=== PATIENT | female | born 1940 | race African-American/Black ===

== ENCOUNTER 2017-01-17 19:27 | Inpatient (IN) | payer OTHER ==
[~2017-01-17] VITALS: Ht 170.2 cm; Wt 114.9 kg
[~2017-01-17 19:27] MED LIST: ASPIR 8181 MG ORAL; ASTORVASTATIN; COREG25 MG ORAL; DIOVAN80 MG ORAL; FUROSEMIDE40 MG ORAL; NOVOLOG MI100 UNITS/ SUBQ; PROTONIX40 MG ORAL; VITAMIN B-12100 MCG ORAL; [UNRECOGNIZED DRUG - OTHER]
[2017-01-17] MEDS ORDERED: GLIMEPIRIDE4 MG ORAL (19:43)
[2017-01-17] MEDS ORDERED: VITAMIN D1000 UNI1 ORAL (19:43)
[2017-01-17] MEDS ORDERED: CLOPIDOGREL75 MG ORAL (19:43)
[2017-01-17] MEDS ORDERED: ATORVASTATIN CA40 MG ORAL (19:43)
[2017-01-17] MEDS ORDERED: HUMALOG100 UNIT/4 SUBQ (19:43)
[2017-01-17 20:03] LABS: EOSINOPHILS % (AUTO) 2.3 % (0.0-3.0); MEAN CORPUSCULAR HEMOGLOBIN 28.8 PG (27.0-31.0); MEAN CORPUSCULAR HGB CONC 33.5 G/DL (32.0-36.0); MEAN CORPUSCULAR VOLUME 86 FL (80-99); MEAN PLATELET VOLUME 5.7 FL (6.5-10.1); MONOCYTES % (AUTO) 11.7 % (1.0-10.0); PLATELET COUNT 219 K/UL (150-450); RED BLOOD COUNT 3.89 M/UL (4.20-5.40); RED CELL DISTRIBUTION WIDTH 13.6 % (11.6-14.8); WHITE BLOOD COUNT 12.7 K/UL (4.8-10.8)
--- NOTE | 2017-01-17 20:25 | Emergency Room Report ---
History of Present Illness General Chief Complaint: Dyspnea/Respdistress Present Illness HPI 76-year-old female history of hypertension diabetes, hyperlipidemia, status post carotid endarterectomy yesterday at [facility], presenting with one day of shortness of breath. Patient states that she has been short of breath all day both at rest and on exertion. Denies any chest pain. Denies any fever chills cough or syncopal episodes. Patient states that she has never experienced this type of shortness of breath in the past. Patient denies any history of DVT or PE, no hormone replacement therapy, no history of malignancy. Allergies: Coded Allergies: No Known Allergies (Unverified , 10/04/13) Patient History Past Surgical History: none Pertinent Family History: none Now: No Reviewed Nursing Documentation: PMH: Agreed, PSxH: Agreed Nursing Documentation-PMH Hx Cardiac Problems: Yes - 2 STEMI, Pacemaker, Defibilator, cardiac stents Hx Hypertension: Yes Hx Pacemaker: Yes Hx Diabetes: Yes Hx Cancer: No Hx Gastrointestinal Problems: No Hx Neurological Problems: No Review of Systems All Other Systems: negative except mentioned in HPI Physical Exam Vital Signs Date Time Temp Pulse Resp B/P (MAP) Pulse Ox O2 Delivery O2 Flow Rate FiO2 01/17/17 19:21 98.4 91 20 147/85 99 Nasal Cannula 6.0 Sp02 EP Interpretation: reviewed, abnormal - hypoxic on RA 88, goes up to General Appearance: normal inspection, well appearing, no apparent distress, alert, GCS 15, non-toxic Head: normocephalic, atraumatic Eyes: bilateral eye normal inspection, bilateral eye PERRL, bilateral eye EOMI ENT: normal ENT inspection, normal pharynx, normal voice, moist mucus membranes Neck: normal inspection, full range of motion, supple, no bony tend Respiratory: normal inspection, lungs clear, normal breath sounds, no respiratory distress, no retraction, no wheezing, speaking full sentences, chest symmetrical Cardiovascular #1: normal inspection, regular rate, rhythm, no edema, normal capillary refill Gastrointestinal: normal inspection, non tender, soft, non-distended, no guarding Musculoskeletal: normal inspection, back normal, normal range of motion, non- tender Neurologic: normal inspection, alert, oriented x3, responsive, segmental paver installer III-XII nml as tested, motor strength/tone normal, sensory intact, normal gait, speech normal Psychiatric: normal inspection, judgement/insight normal, memory normal Skin: normal inspection, normal color, no rash, warm/dry, well hydrated, normal turgor Procedures Critical Care Time Critical Care Time 45 minutes of CC time 76 YO F with sob today VS: hypoxic, tachypneic Airway patent. PLAN: IV access, labs, lactate, d-dimer, CTA Tele vs CHIDI CC time also includes review of labs, review of EMR and paperwork from SNF, d/w hospitalist CC could include dosing of pressors, additional Abx CC time does not include procedures Central Line Central Line : Consent: Written Central Line Lumen: triple Maximal Sterile Barrier Tech: yes cap, yes mask, yes sterile gown, yes sterile gloves, yes large sterile sheet, yes hand hygiene, yes chlorhexidine prep Central Line Postion: internal jugular (R) Anesthesia: Lidocaine Complications: none Central Line Post Position: sutured, good blood return, position confirmed w / CXR Attempts: One Patient Tolerated: Well Complications: None Medical Decision Making Diagnostic Impression: Primary Impression: Dyspnea Additional Impression: Hypoxia ER Course 76 yo F with dyspnea x 1 day DDX: pneumonia, acs, PE Plan: Obtain labs, coags, EKG, CXR ER course: Patient has been monitored during ED stay continues to be hypoxic requiring NC O2 d-dimer elevated, trop elevated CTA ordered heparin bolus/drip given to treat presumed PE no access, R IJ placed Disposition: Patient is to be admitted to tele D/W hospitalist Dr Garcia and Dr. Goodman Patient is still pending CTA however already receiving heparin Please note that this Emergency Department Report was dictated using [employer] team leader technology software, occasionally this can lead to erroneous entry secondary to interpretation by the dictation equipment. Laboratory Tests Test 01/17/17 19:51 White Blood Count 12.7 K/UL (4.8-10.8) H Red Blood Count 3.89 M/UL (4.20-5.40) L Hemoglobin 11.2 G/DL (12.0-16.0) L Hematocrit 33.4 % (37.0-47.0) L Mean Corpuscular Volume 86 FL (80-99) Mean Corpuscular Hemoglobin 28.8 PG (27.0-31.0) Mean Corpuscular Hemoglobin Concent 33.5 G/DL (32.0-36.0) Red Cell Distribution Width 13.6 % (11.6-14.8) Platelet Count 219 K/UL (150-450) Mean Platelet Volume 5.7 FL (6.5-10.1) L Neutrophils (%) (Auto) 70.0 % (45.0-75.0) Lymphocytes (%) (Auto) 15.0 % (20.0-45.0) L Monocytes (%) (Auto) 11.7 % (1.0-10.0) H Eosinophils (%) (Auto) 2.3 % (0.0-3.0) Basophils (%) (Auto) 1.0 % (0.0-2.0) Prothrombin Time 11.0 SEC (9.30-11.50) Prothrombin Time INR 1.1 (0.9-1.1) PTT 26 SEC (23-33) D-Dimer 2384 ng/mL (<500) H Sodium Level 143 mEQ/L (135-145) Potassium Level 4.6 mEQ/L (3.4-4.9) Chloride Level 105 mEQ/L (98-107) Carbon Dioxide Level 28 mEQ/L (20-30) Anion Gap 10 (5-15) Blood Urea Nitrogen 19 mg/dL (7-23) Creatinine 1.4 mg/dL (0.5-0.9) H Estimate Glomerular Filtration Rate mL/min (>60) Glucose Level 103 mg/dL (74-106) Calcium Level 8.9 mg/dL (8.6-10.2) Total Bilirubin 0.4 mg/dL (0.0-1.2) Aspartate Amino Transferase (AST) 28 U/L (5-40) Alanine Aminotransferase (ALT) 9 U/L (3-33) Alkaline Phosphatase 98 U/L (35-104) Total Creatine Kinase 348 U/L (26-140) H Creatine Kinase MB 16.3 ng/mL (< 3.8) H Creatine Kinase MB Relative Index 4.6 Troponin I 1.98 ng/mL (<=0.30) *H Pro-B-Type Natriuretic Peptide 3531 pg/mL (0-450) H Total Protein 6.8 g/dL (6.6-8.7) Albumin 3.7 g/dL (3.5-5.2) Globulin 3.1 g/dL Albumin/Globulin Ratio 1.1 (1.0-2.7) EKG Diagnostic Results Rate: normal Rhythm: NSR ST Segments: other - atrial paced, TWI I and aVL Rhythm Strip Diag. Results EP Interpretation: yes Rate: 89 Rhythm: NSR, no PVC's, no ectopy Chest X-Ray Diagnostic Results Chest X-Ray Diagnostic Results #1: Chest X-Ray Ordered: Yes # of Views/Limited/Complete: 1 View Indication: Shortness of Breath Interpretation: other - poss b/l infiltrates Impression: Other - poss b/l infiltrates Interpreting ER Provider: Electronically signed by Yokasta Panchal MD Chest X-Ray Diagnostic Results #2: Chest X-Ray Ordered: Yes # of Views/Limited/Complete: 1 View Indication: Other - cvp EP Interpretation: Yes Interpretation: no consolidation, no effusion, no pneumothorax, other - ppm in place, central line in place Impression: Other - central line in place Interpreting ER Provider: Electronically signed by Yokasta Panchal MD Last Vital Signs Date Time Temp Pulse Resp B/P (MAP) Pulse Ox O2 Delivery O2 Flow Rate FiO2 01/17/17 19:34 91 20 Nasal Cannula 4.0 01/17/17 19:21 98.4 147/85 99 Disposition: ADMITTED INPATIENT Condition: Critical Yokasta Panchal M.D. Jan 17, 2017 20:25
[2017-01-17 20:31] LABS: INR 1.1 (0.9-1.1)
[2017-01-17 20:35] LABS: ALANINE AMINOTRANSFERASE 9 U/L (3-33); ALBUMIN/GLOBULIN RATIO 1.1 (1.0-2.7); ANION GAP 10 (5-15); ASPARTATE AMINO TRANSFERASE 28 U/L (5-40); CALCIUM 8.9 mg/dL (8.6-10.2); CARBON DIOXIDE 28 mEQ/L (20-30); CHLORIDE 105 mEQ/L (98-107); CREATININE 1.4 mg/dL (0.5-0.9); HEMOLYSIS 19; POTASSIUM 4.6 mEQ/L (3.4-4.9); SODIUM 143 mEQ/L (135-145); TOTAL PROTEIN 6.8 g/dL (6.6-8.7)
[2017-01-17 20:39] LABS: TROPONIN I 1.98 ng/mL (<=0.30)
[2017-01-17 20:45] LABS: CKMB 16.3 ng/mL (< 3.8)
[2017-01-17] MEDS ORDERED: Heparin 25,000u/D5W 500ml (VTE/AF) IV SCH (20:45)
[2017-01-17] MEDS ORDERED: Heparin 25,000u/D5W 500ml 500 ML IV SCH ×2 (20:45→23:02)
[2017-01-17] MEDS ORDERED: Heparin 5000 units/ml inj IV ONE ×3 (20:45→21:00)
[2017-01-17] MEDS ORDERED: LANTUS SOL100 UNIT/1 SUBQ (20:51)
[2017-01-17 21:30] VITALS: BP 158/66
[2017-01-17] MEDS ORDERED: Lidocaine 1% MPF 10mg/ml 5ml ONE (21:51)
[2017-01-17] MEDS ORDERED: Miralax 17gm pkt ORAL PRN (22:45)
[2017-01-17] MEDS ORDERED: Morphine Sulfate 2mg/ml Inj IVP PRN (22:45)
[2017-01-17] MEDS ORDERED: Mylanta II UD 30ml ORAL PRN (22:45)
[2017-01-17] MEDS ORDERED: Zolpidem 5mg tab ORAL PRN (22:45)
[2017-01-17] MEDS ORDERED: LORazepam Inj 2mg/ml 1ml IV PRN (22:45)
[2017-01-17 23:20] VITALS: BP 129/54
[2017-01-18 01:00] VITALS: BP 145/62
[2017-01-18] MEDS ORDERED: Heparin 25,000u/D5W 500ml 500 ML IV SCH ×3 (01:45→16:00)
[2017-01-18 05:23] LABS: BASOPHILS % (AUTO) 0.9 % (0.0-2.0); EOSINOPHILS % (AUTO) 2.6 % (0.0-3.0); LYMPHOCYTES % (AUTO) 16.1 % (20.0-45.0); MEAN CORPUSCULAR HEMOGLOBIN 28.6 PG (27.0-31.0); MEAN CORPUSCULAR HGB CONC 32.5 G/DL (32.0-36.0); MEAN CORPUSCULAR VOLUME 88 FL (80-99); MEAN PLATELET VOLUME 6.4 FL (6.5-10.1); NEUTROPHILS % (AUTO) 69.4 % (45.0-75.0); PLATELET COUNT 250 K/UL (150-450); RED BLOOD COUNT 3.97 M/UL (4.20-5.40); RED CELL DISTRIBUTION WIDTH 13.9 % (11.6-14.8); WHITE BLOOD COUNT 11.1 K/UL (4.8-10.8)
[2017-01-18] MEDS: Carvedilol 25mg Tab ORAL SCH ×3 (05:33→18:12)
[2017-01-18 05:48] LABS: ANION GAP 11 (5-15); CALCIUM 8.8 mg/dL (8.6-10.2); CARBON DIOXIDE 27 mEQ/L (20-30); CHLORIDE 103 mEQ/L (98-107); CHOLESTEROL 142 mg/dL (< 200); CHOLESTEROL/HDL RATIO 2.3 (3.3-4.4); CREATININE 1.2 mg/dL (0.5-0.9); HEMOLYSIS 4; LDL CHOLESTEROL (CALC.) 71 mg/dL (60-99); POTASSIUM 4.2 mEQ/L (3.4-4.9); SODIUM 141 mEQ/L (135-145)
[2017-01-18 06:06] LABS: TROPONIN I 2.83 ng/mL (<=0.30)
[2017-01-18] MEDS ORDERED: NovoLOG Insulin Flexpen SUBQ SCH (06:30)
[2017-01-18 07:48] VITALS: BP 104/59
--- NOTE | 2017-01-18 08:18 | Consultation ---
History of Present Illness General Date patient seen: Jan 18, 2017 Time patient seen: 07:30 Chief Complaint: Dyspnea/Respdistress Referring physician: dr Garcia Reason for Consultation: internal management Present Illness HPI 76-year-old female with PMH of history of hypertension, diabetes, hyperlipidemia, status post carotid endarterectomy 1 day before at [facility], presented with one day of shortness of breath, both at rest and on exertion. Denied any chest pain. No fever, chills, cough, wheezing No blackout, no LO Denied any history of DVT or PE in the past, no hormone replacement therapy, no history of malignancy. Workup in ED revealed elevated troponin- 1.98 elevated D dimer -2384 CTA done, results pending started on heparin gtt for presumed PE prior to results of CTA available and troponin results pro BNP-3531 mild leukocytosis WBC-12.7 anemic -11.2/33.4 ECG -A paced with TWI in leads I and aVL CXR with some congestive changes Allergies: Coded Allergies: No Known Allergies (Unverified , 10/04/13) Medication History Scheduled Aspirin* (Aspir 81*), 81 MG ORAL DAILY, (Reported) Atorvastatin Calcium* (Atorvastatin Calcium*), 40 MG ORAL BEDTIME, (Reported) Carvedilol (Coreg), 25 MG ORAL DAILY, (Reported) Cholecalciferol (Vitamin D3)* (Vitamin D*), 2,000 UNITS ORAL DAILY, (Reported) Clopidogrel* (Clopidogrel*), 75 MG ORAL DAILY, (Reported) Cyanocobalamin (Vitamin B-12), Unknown Dose ORAL DAILY, (Reported) Furosemide* (Lasix*), 40 MG ORAL DAILY, (Reported) Glimepiride* (Glimepiride*), 4 MG ORAL BEFORE BREAKFAST, (Reported) Insulin Aspart (Novolog Mix 70-30 Flexpen Syrn), 10 UNITS SUBQ ACBREAKFAST, ( Reported) Insulin Aspart (Novolog Mix 70-30 Flexpen Syrn), 12 UNITS SUBQ BEFORE LUNCH, ( Reported) Insulin Aspart (Novolog Mix 70-30 Flexpen Syrn), 8 UNITS SUBQ 2000, (Reported) Insulin Glargine (Lantus), 16 SUBQ BEDTIME, (Reported) Pantoprazole* (Protonix*), 40 MG ORAL DAILY, (Reported) Valsartan (Diovan), 80 MG ORAL HS, (Reported) [astorvastatin], 40 DAILY, (Reported) [d3-2000], DAILY, (Reported) Miscellaneous Medications Insulin Lispro (Humalog), 0 SUBQ, (Reported) Patient History Healthcare decision maker Resuscitation status Full Code Advanced Directive on File No Past Medical/Surgical History Past Medical/Surgical History: (1) Diabetes (2) Hyperlipidemia (3) CAD (coronary artery disease) (4) HTN (hypertension) Review of Systems Constitutional: Reports: weakness Eye: Reports: no symptoms ENT: Reports: no symptoms Respiratory: Reports: see HPI Cardiovascular: Reports: see HPI Gastrointestinal: Reports: no symptoms Genitourinary: Reports: no symptoms Musculoskeletal: Reports: muscle stiffness Skin: Reports: no symptoms Psychiatric: Reports: no symptoms Neurological: Reports: no symptoms Endocrine: Reports: other - DIABETES Hematologic/Lymphatic: Reports: no symptoms Physical Exam General Appearance: no apparent distress, alert - AWAKE, RESPONSIVE aa FEMALE IN nad , morbidly obese Lines, tubes and drains: peripheral HEENT: normocephalic, atraumatic, anicteric, mucous membranes moist, PERRL Neck: supple, other - RIJ CL intact, left lateral neck with dressing C/D/I ( after endarterectomy) Respiratory/Chest: lungs clear, no respiratory distress, no accessory muscle use Cardiovascular/Chest: normal peripheral pulses, normal rate - V pacing with underlying SR Abdomen: normal bowel sounds, non tender, soft - obese Extremities: normal range of motion, non-tender, no calf tenderness Neurologic: no motor/sensory deficits, alert, oriented x 3, responsive Musculoskeletal: normal muscle bulk Last 24 Hour Vital Signs Date Time Temp Pulse Resp B/P (MAP) Pulse Ox O2 Delivery O2 Flow Rate FiO2 01/18/17 07:48 96.6 77 18 104/59 99 Nasal Cannula 4.0 01/18/17 05:33 88 171/82 01/18/17 04:00 84 01/18/17 01:20 97.0 88 17 145/62 99 Non-Rebreather 10.0 01/18/17 01:00 88 17 145/62 99 Non-Rebreather 10.0 01/17/17 23:20 78 18 129/54 100 Non-Rebreather 10.0 01/17/17 21:30 97.0 89 21 158/66 100 Non-Rebreather 10.0 01/17/17 19:34 91 20 Nasal Cannula 4.0 01/17/17 19:21 98.4 91 20 147/85 99 Nasal Cannula 6.0 Laboratory Tests Test 01/17/17 19:51 01/18/17 05:10 White Blood Count 12.7 K/UL (4.8-10.8) H 11.1 K/UL (4.8-10.8) H Red Blood Count 3.89 M/UL (4.20-5.40) L 3.97 M/UL (4.20-5.40) L Hemoglobin 11.2 G/DL (12.0-16.0) L 11.3 G/DL (12.0-16.0) L Hematocrit 33.4 % (37.0-47.0) L 34.8 % (37.0-47.0) L Mean Corpuscular Volume 86 FL (80-99) 88 FL (80-99) Mean Corpuscular Hemoglobin 28.8 PG (27.0-31.0) 28.6 PG (27.0-31.0) Mean Corpuscular Hemoglobin Concent 33.5 G/DL (32.0-36.0) 32.5 G/DL (32.0-36.0) Red Cell Distribution Width 13.6 % (11.6-14.8) 13.9 % (11.6-14.8) Platelet Count 219 K/UL (150-450) 250 K/UL (150-450) Mean Platelet Volume 5.7 FL (6.5-10.1) L 6.4 FL (6.5-10.1) L Neutrophils (%) (Auto) 70.0 % (45.0-75.0) 69.4 % (45.0-75.0) Lymphocytes (%) (Auto) 15.0 % (20.0-45.0) L 16.1 % (20.0-45.0) L Monocytes (%) (Auto) 11.7 % (1.0-10.0) H 11.0 % (1.0-10.0) H Eosinophils (%) (Auto) 2.3 % (0.0-3.0) 2.6 % (0.0-3.0) Basophils (%) (Auto) 1.0 % (0.0-2.0) 0.9 % (0.0-2.0) Prothrombin Time 11.0 SEC (9.30-11.50) Prothromb Time International Ratio 1.1 (0.9-1.1) Activated Partial Thromboplast Time 26 SEC (23-33) > 150 SEC (23-33) *H D-Dimer 2384 ng/mL (<500) H Sodium Level 143 mEQ/L (135-145) 141 mEQ/L (135-145) Potassium Level 4.6 mEQ/L (3.4-4.9) 4.2 mEQ/L (3.4-4.9) Chloride Level 105 mEQ/L (98-107) 103 mEQ/L (98-107) Carbon Dioxide Level 28 mEQ/L (20-30) 27 mEQ/L (20-30) Anion Gap 10 (5-15) 11 (5-15) Blood Urea Nitrogen 19 mg/dL (7-23) 16 mg/dL (7-23) Creatinine 1.4 mg/dL (0.5-0.9) H 1.2 mg/dL (0.5-0.9) H Estimat Glomerular Filtration Rate mL/min (>60) mL/min (>60) Glucose Level 103 mg/dL (74-106) 133 mg/dL (74-106) H Calcium Level 8.9 mg/dL (8.6-10.2) 8.8 mg/dL (8.6-10.2) Total Bilirubin 0.4 mg/dL (0.0-1.2) Aspartate Amino Transf (AST/SGOT) 28 U/L (5-40) Alanine Aminotransferase (ALT/SGPT) 9 U/L (3-33) Alkaline Phosphatase 98 U/L (35-104) Total Creatine Kinase 348 U/L (26-140) H Creatine Kinase MB 16.3 ng/mL (< 3.8) H Creatine Kinase MB Relative Index 4.6 Troponin I 1.98 ng/mL (<=0.30) *H 2.83 ng/mL (<=0.30) *H Pro-B-Type Natriuretic Peptide 3531 pg/mL (0-450) H Total Protein 6.8 g/dL (6.6-8.7) Albumin 3.7 g/dL (3.5-5.2) Globulin 3.1 g/dL Albumin/Globulin Ratio 1.1 (1.0-2.7) Triglycerides Level 49 mg/dL (< 150) Cholesterol Level 142 mg/dL (< 200) LDL Cholesterol 71 mg/dL (60-99) HDL Cholesterol 61 mg/dL (> 60) H Cholesterol/HDL Ratio 2.3 (3.3-4.4) L Height (Feet): 5 Height (Inches): 7.00 Weight (Pounds): 250 Medications Current Medications Medications (Trade) Dose Ordered Sig/Erin Route PRN Reason Start Time Stop Time Status Last Admin Dose Admin Acetaminophen (Tylenol) 650 mg Q4H PRN ORAL fever 01/17/17 22:45 02/16/17 22:44 Al Hydroxide/Mg Hydroxide (Mylanta II) 30 ml Q6H PRN ORAL dyspepsia 01/17/17 22:45 02/16/17 22:44 Carvedilol (Coreg) 25 mg BID ORAL 01/18/17 09:00 02/17/17 08:59 01/18/17 05:33 Dextrose (Dextrose 50%) STAT PRN IV Hypoglycemia 01/17/17 22:45 02/16/17 22:44 Heparin Sodium/ Dextrose 500 ml @ 31.751 mls/ hr adjust per protocol IV 01/18/17 01:45 02/17/17 01:44 01/18/17 01:51 Insulin Aspart (NovoLOG) BEFORE MEALS AND HS SUBQ 01/18/17 06:30 02/17/17 06:29 Lorazepam (Ativan 2mg/ml 1ml) 0.5 mg Q4H PRN IV For Anxiety 01/17/17 22:45 01/24/17 22:44 Morphine Sulfate (Morphine Sulfate) 1 mg Q4H PRN IVP For Pain 01/17/17 22:45 01/24/17 22:44 Ondansetron HCl (Zofran) 4 mg Q6H PRN IVP Nausea & Vomiting 01/17/17 22:45 02/16/17 22:44 Pantoprazole (Protonix) 40 mg ACBREAKFAST ORAL 01/18/17 06:30 02/17/17 06:29 01/18/17 05:32 Polyethylene Glycol (Miralax) 17 gm HSPRN PRN ORAL Constipation 01/17/17 22:45 02/16/17 22:44 Zolpidem Tartrate (Ambien) 5 mg HSPRN PRN ORAL Insomnia 01/17/17 22:45 01/24/17 22:44 Assessment/Plan Assessment/Plan ASSESSMENT acute hypoxemic respiratory failure elevated troponin possible ACS/ NSTEMI possible PE s/p recent left carotid endarterectomy HTN CAD with cardiac stents Hx of STEMI x 2 pacemaker DM Hyperlipidemia LESLY vs chronic renal insufficiency PLAN OF CARE tele Heparin gtt serial troponin, trending up cardio eval pending ASA, Plavix resumed BB statin, lipid panel OK CTA results pending ( not completed, since amchine broken) check venous Duplex BLE supplemental O2 to keep sat above 92% Pulmonary toilet prn Fup with CXR today ECHO consider diuresis-per cardio discretion doubt PNA, leukocytosis likely reactive BS management with SS of insulin GI prophayxlis transfer to higher level of care case discussed and evaluated by supervising physician Les ([facility]),Yamileth DRAPER Jan 18, 2017 08:18
--- NOTE | 2017-01-18 08:40 | Diagnostic Imaging Report ---
Indication: Dyspnea Comparison: 01/17/17 A single view chest radiograph was obtained. Findings: Interstitium appear somewhat prominent. There is mild cardiomegaly. There is a pacemaker on the left. Right jugular line is present in good position. Bones are osteopenic. There is no pneumothorax. Impression: Right jugular line in good position. No complications
--- NOTE | 2017-01-18 08:49 | Diagnostic Imaging Report ---
Indication: Dyspnea Comparison: 10/05/13 A single view chest radiograph was obtained. Findings: The heart is enlarged. Interstitial edema suspected. This is mild in degree. The bones are osteopenic. Pacemaker noted. Impression: Mild interstitial edema
[2017-01-18] MEDS ORDERED: Aspirin Baby 81mg ORAL SCH (09:00)
[2017-01-18] MEDS ORDERED: Carvedilol 25mg Tab ORAL SCH (09:00)
--- NOTE | 2017-01-18 11:26 | Diagnostic Imaging Report ---
Indication: Dyspnea Comparison: 01/17/17 A single view chest radiograph was obtained. Findings: No change appreciated. Interstitial edema and cardiomegaly appear relatively stable. Pacemaker and right jugular line again noted. Impression: Suspected interstitial edema without significant change from the prior day
[2017-01-18 12:30] VITALS: BP 97/47
--- NOTE | 2017-01-18 14:18 | Cardiac Electrophysiology PN ---
Subjective Subjective [id number] Objective Last 24 Hour Vital Signs Date Time Temp Pulse Resp B/P (MAP) Pulse Ox O2 Delivery O2 Flow Rate FiO2 01/18/17 12:30 98.1 83 20 97/47 98 Nasal Cannula 3.0 01/18/17 12:00 80 01/18/17 10:42 77 104/59 01/18/17 08:00 85 01/18/17 07:48 96.6 77 18 104/59 99 Nasal Cannula 4.0 01/18/17 05:33 88 171/82 01/18/17 04:00 84 01/18/17 01:20 97.0 88 17 145/62 99 Non-Rebreather 10.0 01/18/17 01:00 88 17 145/62 99 Non-Rebreather 10.0 01/17/17 23:20 78 18 129/54 100 Non-Rebreather 10.0 01/17/17 21:30 97.0 89 21 158/66 100 Non-Rebreather 10.0 01/17/17 19:34 91 20 Nasal Cannula 4.0 01/17/17 19:21 98.4 91 20 147/85 99 Nasal Cannula 6.0 Intake and Output 01/18/17 01/19/17 19:00 07:00 Intake Total 247.00 ml Output Total 400 ml Balance -153.00 ml Intake Oral 120 ml IV Total 127.00 ml Output Urine Total 400 ml Laboratory Tests Test 01/17/17 19:51 01/18/17 05:10 White Blood Count 12.7 K/UL (4.8-10.8) H 11.1 K/UL (4.8-10.8) H Red Blood Count 3.89 M/UL (4.20-5.40) L 3.97 M/UL (4.20-5.40) L Hemoglobin 11.2 G/DL (12.0-16.0) L 11.3 G/DL (12.0-16.0) L Hematocrit 33.4 % (37.0-47.0) L 34.8 % (37.0-47.0) L Mean Corpuscular Volume 86 FL (80-99) 88 FL (80-99) Mean Corpuscular Hemoglobin 28.8 PG (27.0-31.0) 28.6 PG (27.0-31.0) Mean Corpuscular Hemoglobin Concent 33.5 G/DL (32.0-36.0) 32.5 G/DL (32.0-36.0) Red Cell Distribution Width 13.6 % (11.6-14.8) 13.9 % (11.6-14.8) Platelet Count 219 K/UL (150-450) 250 K/UL (150-450) Mean Platelet Volume 5.7 FL (6.5-10.1) L 6.4 FL (6.5-10.1) L Neutrophils (%) (Auto) 70.0 % (45.0-75.0) 69.4 % (45.0-75.0) Lymphocytes (%) (Auto) 15.0 % (20.0-45.0) L 16.1 % (20.0-45.0) L Monocytes (%) (Auto) 11.7 % (1.0-10.0) H 11.0 % (1.0-10.0) H Eosinophils (%) (Auto) 2.3 % (0.0-3.0) 2.6 % (0.0-3.0) Basophils (%) (Auto) 1.0 % (0.0-2.0) 0.9 % (0.0-2.0) Prothrombin Time 11.0 SEC (9.30-11.50) Prothromb Time International Ratio 1.1 (0.9-1.1) Activated Partial Thromboplast Time 26 SEC (23-33) > 150 SEC (23-33) *H D-Dimer 2384 ng/mL (<500) H Sodium Level 143 mEQ/L (135-145) 141 mEQ/L (135-145) Potassium Level 4.6 mEQ/L (3.4-4.9) 4.2 mEQ/L (3.4-4.9) Chloride Level 105 mEQ/L (98-107) 103 mEQ/L (98-107) Carbon Dioxide Level 28 mEQ/L (20-30) 27 mEQ/L (20-30) Anion Gap 10 (5-15) 11 (5-15) Blood Urea Nitrogen 19 mg/dL (7-23) 16 mg/dL (7-23) Creatinine 1.4 mg/dL (0.5-0.9) H 1.2 mg/dL (0.5-0.9) H Estimat Glomerular Filtration Rate mL/min (>60) mL/min (>60) Glucose Level 103 mg/dL (74-106) 133 mg/dL (74-106) H Calcium Level 8.9 mg/dL (8.6-10.2) 8.8 mg/dL (8.6-10.2) Total Bilirubin 0.4 mg/dL (0.0-1.2) Aspartate Amino Transf (AST/SGOT) 28 U/L (5-40) Alanine Aminotransferase (ALT/SGPT) 9 U/L (3-33) Alkaline Phosphatase 98 U/L (35-104) Total Creatine Kinase 348 U/L (26-140) H Creatine Kinase MB 16.3 ng/mL (< 3.8) H Creatine Kinase MB Relative Index 4.6 Troponin I 1.98 ng/mL (<=0.30) *H 2.83 ng/mL (<=0.30) *H Pro-B-Type Natriuretic Peptide 3531 pg/mL (0-450) H Total Protein 6.8 g/dL (6.6-8.7) Albumin 3.7 g/dL (3.5-5.2) Globulin 3.1 g/dL Albumin/Globulin Ratio 1.1 (1.0-2.7) Triglycerides Level 49 mg/dL (< 150) Cholesterol Level 142 mg/dL (< 200) LDL Cholesterol 71 mg/dL (60-99) HDL Cholesterol 61 mg/dL (> 60) H Cholesterol/HDL Ratio 2.3 (3.3-4.4) DEAN BRADSHAW Jan 18, 2017 14:18
[2017-01-18 16:00] VITALS: BP 142/65
[2017-01-18] MEDS ORDERED: Mylanta II UD 30ml ORAL PRN (16:00)
[2017-01-18] MEDS: NovoLOG Insulin Flexpen SUBQ SCH ×2 (16:10→21:20)
--- NOTE | 2017-01-18 16:42 | Consultation ---
Consult Note Consult Note NEUROLOGY CONSULTATION: Full note dictated #[id number] 76 y/o, RH, BF with PH of HTN, DM, DL, CAD s/p GA/PCI/Stents/AICD, PVD s/p LE stents, CVD asymptomatic - S/P L-CEA on 01/16/17. She was sent home on 01/17/17 and later that night she became very SOB and was brought into the [facility] ER. She feels better now. Denies any neurologic symptoms. ON EXAM: Globally diminished reflexes. No focal dysfunction. IMPRESSION: 1. SOB - Non-neurologic. 2. S/P recent L-CEA uneventful neurologically. REC: W/U for SOB as per Drs. Vieyra and Shara. Carotid duplex. LE duplex as planned. CTA of chest as planned. Continue anticoagulation in interim. Sanchez Puente M.D., M.S.P.Sheri. SANCHEZ PUENTE Jan 18, 2017 16:42
[2017-01-18] MEDS ORDERED: Zolpidem 5mg tab ORAL PRN (21:00)
[2017-01-18] MEDS ORDERED: Miralax 17gm pkt ORAL PRN (21:00)
[2017-01-19] VITALS (12 sets, daily range): BP systolic 111–171; BP diastolic 36–90
--- NOTE | 2017-01-19 02:00 | History and Physical Report ---
DATE OF ADMISSION: 01/17/2017 TIME SEEN: 9 a.m. CONSULTANTS: 1. Jey Puente M.D. 2. Carlos Olmedo M.D. 3. Yuliya Goodman M.D. CHIEF COMPLAINT: Chest pain and shortness of breath. BRIEF HISTORY: This is a 76-year-old female, who lives at home with grandson, presents to [facility] with history of shortness of breath. No chest pain. The patient diagnosed with presumed PE, shortness of breath, hypoxia, and elevated troponin. Admitted to telemetry for further care. Currently, calm. O2 NC. No chest pain. Slight short of breath. No nausea, vomiting, or diarrhea. PAST MEDICAL HISTORY: Include left CVA x2, NSTEMI, hypertension, and diabetes. PAST SURGICAL HISTORY: Heart stent and defibrillator. MEDICATIONS: Atorvastatin, Coreg, aspirin, Plavix, Protonix, Tylenol, morphine, MiraLAX, Zofran, and Ambien. ALLERGIES: Denies. SOCIAL HISTORY: No smoking. No alcohol. No intravenous drug abuse. FAMILY HISTORY: Noncontributory. PHYSICAL EXAMINATION: GENERAL: Calm, slight short of breath, weak in bed, oriented x3, in no acute distress. VITAL SIGNS: Temperature is 96 degrees, pulse 77, respirations 18, and blood pressure 101/59. CARDIOVASCULAR: No murmurs. LUNGS: Poor exchange. ABDOMEN: Positive bowel sounds. Nontender and nondistended. EXTREMITIES: No cyanosis, clubbing, or edema. NEUROLOGIC: The patient moves all extremities, slightly weak. LABORATORY DATA: Lab exam show white count 11, hemoglobin and hematocrit 11 and 34, and platelets 250,000. Creatinine 1.2. Glucose 133. Troponin 2.83. PTT is greater than 150. D-dimer is 2384. ASSESSMENT: 1. Presumed pulmonary embolism. 2. Non ST-segment elevation myocardial infarction. 3. Hypertension. 4. Diabetes. PLAN: 1. Continue premedications. 2. O2 and pulmonary treatment. 3. Troponin q.8 h. x3. 4. EKG in the morning. 5. Dr. Puente, Dr. Olmedo, and Rex to consult. 6. OT, PT, and dietary evaluation. 7. CBC and BMP in the morning. 8. We will discuss with Dr. Olmedo regarding transfer. Brice Garcia D.O. DR: CROW JOB#: [id number] CC:
[2017-01-19] MEDS: Heparin 25,000u/D5W 500ml 500 ML IV SCH ×2 (03:43→11:58)
[2017-01-19 05:41] LABS: ANION GAP 7 (5-15); CALCIUM 8.8 mg/dL (8.6-10.2); CARBON DIOXIDE 31 mEQ/L (20-30); CHLORIDE 105 mEQ/L (98-107); CREATININE 1.2 mg/dL (0.5-0.9); HEMOLYSIS 3; POTASSIUM 4.1 mEQ/L (3.4-4.9); SODIUM 143 mEQ/L (135-145)
[2017-01-19 05:49] LABS: BASOPHILS % (AUTO) 0.7 % (0.0-2.0); LYMPHOCYTES % (AUTO) 23.2 % (20.0-45.0); MEAN CORPUSCULAR HEMOGLOBIN 28.3 PG (27.0-31.0); MEAN CORPUSCULAR HGB CONC 32.2 G/DL (32.0-36.0); MEAN CORPUSCULAR VOLUME 88 FL (80-99); MONOCYTES % (AUTO) 14.3 % (1.0-10.0); NEUTROPHILS % (AUTO) 56.8 % (45.0-75.0); PLATELET COUNT 202 K/UL (150-450); RED BLOOD COUNT 3.38 M/UL (4.20-5.40); RED CELL DISTRIBUTION WIDTH 13.6 % (11.6-14.8); WHITE BLOOD COUNT 8.9 K/UL (4.8-10.8)
[2017-01-19 05:52] LABS: THYROID STIMULATING HORMONE 0.489 uIU/mL (0.300-4.500)
[2017-01-19 06:26] LABS: TROPONIN I 1.85 ng/mL (<=0.30)
[2017-01-19] MEDS: NovoLOG Insulin Flexpen SUBQ SCH ×4 (06:34→21:15)
--- NOTE | 2017-01-19 07:01 | General Progress Note ---
Assessment/Plan Problem List: (1) ACS (acute coronary syndrome) (2) Neck pain (3) Hypoxia ICD Codes: R09.02 - Hypoxemia SNOMED: 750043197, 05616296 (4) HTN (hypertension) ICD Codes: I10 - Essential (primary) hypertension SNOMED: 47577923 (5) Diabetes ICD Codes: E11.9 - Type 2 diabetes mellitus without complications SNOMED: 76332578 (6) CAD (coronary artery disease) ICD Codes: I25.10 - Atherosclerotic heart disease of ruby coronary artery without angina pectoris SNOMED: 82082570 (7) Dyspnea ICD Codes: R06.00 - Dyspnea, unspecified SNOMED: 825725844 Status: stable, progressing, tolerating diet Assessment/Plan o2 pulm tx cardio pulm f/u cbc bmp am heme eval kleynberg, sx eval prn per pulm Subjective Allergies: Coded Allergies: No Known Allergies (Unverified , 10/04/13) All Systems: reviewed and negative except above Subjective sl weak in bed Objective Last 24 Hour Vital Signs Date Time Temp Pulse Resp B/P (MAP) Pulse Ox O2 Delivery O2 Flow Rate FiO2 01/19/17 04:00 98.1 80 20 153/77 99 Nasal Cannula 3.0 01/19/17 04:00 75 01/19/17 00:00 98.2 76 20 159/74 100 Nasal Cannula 2.0 01/19/17 00:00 74 01/18/17 20:00 79 01/18/17 18:12 79 152/69 01/18/17 16:00 80 01/18/17 16:00 99.2 80 18 142/65 99 Nasal Cannula 3.0 01/18/17 12:30 98.1 83 20 97/47 98 Nasal Cannula 3.0 01/18/17 12:00 80 01/18/17 10:42 77 104/59 01/18/17 08:00 85 01/18/17 07:48 96.6 77 18 104/59 99 Nasal Cannula 4.0 Laboratory Tests 01/18/17 14:00: Activated Partial Thromboplast Time 124H 01/19/17 02:00: Activated Partial Thromboplast Time 116H 01/19/17 04:00: White Blood Count 8.9, Red Blood Count 3.38L, Hemoglobin 9.6L, Hematocrit 29.7L , Mean Corpuscular Volume 88, Mean Corpuscular Hemoglobin 28.3, Mean Corpuscular Hemoglobin Concent 32.2, Red Cell Distribution Width 13.6, Platelet Count 202, Mean Platelet Volume 6.0L, Neutrophils (%) (Auto) 56.8, Lymphocytes ( %) (Auto) 23.2, Monocytes (%) (Auto) 14.3H, Eosinophils (%) (Auto) 5.0H, Basophils (%) (Auto) 0.7, Sodium Level 143, Potassium Level 4.1, Chloride Level 105, Carbon Dioxide Level 31H, Anion Gap 7, Blood Urea Nitrogen 16, Creatinine 1.2H, Estimat Glomerular Filtration Rate , Glucose Level 174H, Calcium Level 8.8 , Troponin I 1.85*H, Pro-B-Type Natriuretic Peptide 2047H, Thyroid Stimulating Hormone (TSH) 0.489, Free Thyroxine 1.35 Height (Feet): 5 Height (Inches): 7.00 Weight (Pounds): 250 General Appearance: alert EENT: normal ENT inspection Neck: normal alignment Cardiovascular: normal peripheral pulses, normal rate, regular rhythm Respiratory/Chest: chest wall non-tender, lungs clear, normal breath sounds Abdomen: normal bowel sounds, non tender, soft Extremities: normal inspection Edema: no edema noted Arm (L), no edema noted Arm (R), no edema noted Leg (L), no edema noted Leg (R), no edema noted Pedal (L), no edema noted Pedal (R), no edema noted Generalized Neurologic: responsive, motor weakness Skin: normal pigmentation, warm/dry FRANTZ BURRIS Jan 19, 2017 07:01
--- NOTE | 2017-01-19 09:45 | Consultation ---
DATE OF CONSULTATION: 01/18/2017 CARDIAC ELECTROPHYSIOLOGY CONSULTATION REFERRING PHYSICIAN: Brice Garcia D.O. REASON FOR CONSULTATION: Elevated troponin, evaluation of the patient's defibrillator. HISTORY OF PRESENT ILLNESS: The patient is a 76-year-old lady with history of hypertension, diabetes, and hyperlipidemia who states that she has history of cardiac arrest in 2011 for which her pacemaker was upgraded to a [employer] defibrillator. The patient is status post carotid endarterectomy just yesterday at [facility]. The patient came to the emergency room complaining of increasing shortness of breath at rest as well as on exertion. The patient, however, did not have any chest pain. The patient's D-dimer was highly elevated at 2284 and her troponin was elevated at 1.98. The patient was started on heparin drip for presumed pulmonary embolism prior to the CT angiogram result. Her BNP was also 3531. Her EKG, however, showed atrially sensed and intermittent ventricular paced rhythm. Her echocardiogram showed normal left ventricular systolic function, ejection fraction 55%. PAST MEDICAL HISTORY: As mentioned above. MEDICATIONS: Per reconciliation. SOCIAL HISTORY: She lives at home. Does not smoke or drink alcohol. FAMILY HISTORY: Noncontributory. REVIEW OF SYSTEMS: Review of systems was thoroughly performed and was negative other than what was mentioned in the history of present illness. PHYSICAL EXAMINATION: VITAL SIGNS: Blood pressure of 97/47, pulse 82, respirations 20, and temperature 98.1 degrees. HEAD AND NECK: No JVD. Status post left carotid endarterectomy. LUNGS: Clear. CARDIOVASCULAR: Regular S1 and S2 with no gallop. The defibrillator is in left subclavian. There are two incisions, both healed. ABDOMEN: Soft. EXTREMITIES: No pitting edema. LABORATORY AND DIAGNOSTIC DATA: White count 11.9, hemoglobin 11.2, hematocrit 34.8, and platelet count 250,000. Sodium 141, potassium 4.2, BUN 16, and creatinine 1.2. Initial troponin was 1.98 and second troponin was 2.83. ASSESSMENT AND PLAN: 1. Elevated troponin at 2.83. The patient denies any chest pain. EKG does not show any acute ischemic changes. This could be secondary to pulmonary embolism as the patient's D-dimer is very high. The patient also had 1.4. Continue the patient on aspirin, Plavix, Lipitor, and Coreg 25 mg b.i.d. We will get serial troponins, but at this time two levels of troponin are pretty similar. 2. Status post [employer] defibrillator implantation. We will try to interrogate defibrillator to evaluate further. 3. Shortness of breath, possible pulmonary embolism. CT angiogram is pending. The patient is currently on heparin drip. 4. Hypertension. Continue Coreg 25 mg b.i.d. at this time and the blood pressure is currently stable. 5. Status post left carotid endarterectomy. 6. Normal left ventricular systolic function. Thank you very much, Dr. Garcia, for allowing me to participate in the care of this patient. Please do not hesitate to contact me for any questions regarding my evaluation. Carlos Olmedo M.D. DR: DANA JOB#: [id number] CC:
[2017-01-19 10:12] LABS: BASOPHILS % (AUTO) 0.6 % (0.0-2.0); EOSINOPHILS % (AUTO) 4.3 % (0.0-3.0); LYMPHOCYTES % (AUTO) 13.2 % (20.0-45.0); MEAN CORPUSCULAR HEMOGLOBIN 28.8 PG (27.0-31.0); MEAN CORPUSCULAR HGB CONC 32.8 G/DL (32.0-36.0); MEAN CORPUSCULAR VOLUME 88 FL (80-99); MEAN PLATELET VOLUME 5.9 FL (6.5-10.1); MONOCYTES % (AUTO) 11.8 % (1.0-10.0); NEUTROPHILS % (AUTO) 70.1 % (45.0-75.0); PLATELET COUNT 212 K/UL (150-450); RED BLOOD COUNT 3.41 M/UL (4.20-5.40); RED CELL DISTRIBUTION WIDTH 13.6 % (11.6-14.8); WHITE BLOOD COUNT 9.7 K/UL (4.8-10.8)
[2017-01-19 10:16] LABS: INR 1.1 (0.9-1.1)
[2017-01-19] MEDS: Aspirin Baby 81mg ORAL SCH (10:52)
[2017-01-19] MEDS: Carvedilol 25mg Tab ORAL SCH ×2 (10:52→18:00)
--- NOTE | 2017-01-19 11:00 | Consultation ---
DATE OF CONSULTATION: 01/18/2017 NEUROLOGY CONSULTATION CONSULTING PHYSICIAN: Jey Puente M.D. REQUESTING PHYSICIAN: Yuliya Goodman M.D. HISTORY: Ms. Nadya Dejesus is a 76-year-old, right-handed, black lady, who does have a past history of hypertension, diabetes mellitus, dyslipidemia, coronary artery disease - status post myocardial infarction treated with percutaneous interventions, stent placement, and in addition an AICD. She also has a history of peripheral vascular disease for which she has had bilateral lower extremity stents placed. She was recently diagnosed as having severe asymptomatic carotid disease as a result of that she had a left carotid endarterectomy performed on 01/16/2017, at [facility]. She was sent home on the next day that is on 01/17/2017. Later on that day, she became very short of breath and as a result of that was brought into the [facility] Emergency Room. She feels a little better now, but is still slightly more short of breath than her baseline. She denies any new neurological symptoms. She specifically denies any weakness on one side or the other, numbness on one side or the other, problems with speech, problems with language, problems with vision, or problem with her cognitive function. She has been able to stand up and walk a few times to go to the bathroom with no problems. PAST MEDICAL HISTORY: Significant for high blood pressure, diabetes mellitus, dyslipidemia, coronary artery disease - status post myocardial infarction, PCI stent placement, AICD placement, peripheral vascular disease - status post lower extremity stent placement, and cerebrovascular disease status post recent left carotid endarterectomy. FAMILY HISTORY: Significant for high blood pressure, diabetes mellitus, and dyslipidemia in numerous family members. PERSONAL HISTORY: Home: She lives at home with grandson. 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 Habits: She smoked for numerous years in the past, but stopped smoking numerous years ago. She consumes approximately two to three alcoholic drinks in a week. She denies use of any illicit drugs. PRESENT MEDICATIONS: Include aspirin 81 mg daily, Plavix 75 mg daily, pantoprazole, atorvastatin, MiraLax, Ambien, Coreg, NovoLog insulin, Mylanta, Zofran, heparin intravenously for anticoagulation, acetaminophen p.r.n., Ativan p.r.n., and morphine p.r.n. PHYSICAL EXAMINATION: GENERAL: She is a well-developed, well-nourished, obese, black lady, lying in bed, in no acute distress. VITAL SIGNS: Pulse is 80 per minute, blood pressure 142/65 mmHg, respirations 18 per minute, and temperature 99.2 degrees Fahrenheit. HEAD: Normocephalic and atraumatic. NECK: No neck rigidity was observed. She did have an area over left neck that was covered with dressing soaked with a minimal amount of blood. EENT: Examination is benign. NEUROLOGICAL EXAMINATION: MENTAL STATUS EXAMINATION: She was awake and alert. She was oriented to person, place, and time. She was able to recall 3/3 words immediately after 1 minute and after 3 minutes. She was able to remember presidents Trump through Teresa, Sr. with hints. Her mathematical skills were good. Her visuospatial function was preserved. SPEECH: She had no dysarthria. LANGUAGE: She had no aphasia. CRANIAL NERVE EXAMINATION: II: The visual york were intact to confrontation testing. III, IV & : External ocular movements were full and the pupils 3 mm in diameter, equal, round, regular, and reactive to light. V: She had normal facial sensations and the temporales, masseters, and pterygoids functioned normally. VII: She had normal facial expressions and no facial asymmetry. VIII: She was able to hear well bilaterally and had no nystagmus. IX: The palate moved symmetrically on phonation. X: She had no hoarseness of voice. XI: The sternocleidomastoids and trapezii functioned normally. XII: The tongue was in the midline without any fasciculations or atrophy. MOTOR SYSTEM: The tone was normal in all four extremities. Examination of muscle mass revealed no focal wasting. Examination of power revealed grade 5/5 power in all muscle groups tested. SENSORY EXAMINATION: She had intact sensations to pinprick, light touch, and graphesthesia. COORDINATION: She performed well on [id number] and [id number]-[id number] testing. REFLEXES: 0 at the biceps, triceps, brachioradialis, knees, and ankles. The plantar responses were flexor bilaterally. STANCE & GAIT: Were deferred. DIAGNOSTIC IMPRESSION: 1. Ms. Nadya Dejesus is a 76-year-old, right-handed, black lady, who does have a past history of hypertension, diabetes mellitus, dyslipidemia, coronary artery disease, peripheral vascular disease, and cerebrovascular disease, who had left carotid endarterectomy on 01/16/2017, and was sent home on 01/17/2017. Later that night, she became very short of breath and was brought into the [facility] Emergency Room. She at this point in time feels much better and denies any neurological symptoms. 2. On neurological examination, at this time, she does have globally diminished deep tendon reflexes, but no focal or lateralizing neurological findings. 3. Laboratory data obtained thus far revealed a mild leukocytosis with a WBC count of 11.1 and a mild anemia with a hemoglobin of 11.3. The chemistry panel was relatively benign except for the creatinine elevated to 1.2. Her troponins were elevated and so was her proBNP. 4. The patient's history and neurological examination are most compatible with shortness of breath that is non-neurological in nature. 5. She has had a recent left carotid endarterectomy, which seems to be neurologically uneventful. RECOMMENDATIONS: 1. Agree with management thus far. 2. Agree with working the patient up thoroughly for her shortness of breath, as per Dr. Goodman and associates and Dr. Olmedo. 3. Await results of lower extremity Duplex and CTA of the chest. 4. Would continue anticoagulation in the interim. 5. A carotid Duplex will be ordered to exclude any carotid pathology of an acute nature. Thank you for entrusting me with the care of Ms. Dejesus. I shall follow her with you. Jey Puente M.D., M.S.P.H. DR: Messi JOB#: [id number] MARLEN
--- NOTE | 2017-01-19 12:38 | Pulmonology Progress Note ---
Assessment/Plan Assessment/Plan ASSESSMENT acute hypoxemic respiratory failure elevated troponin possible ACS/ NSTEMI possible PE s/p recent left carotid endarterectomy HTN CAD with cardiac stents Hx of STEMI x 2 pacemaker DM Hyperlipidemia LESLY vs chronic renal insufficiency mild pulmonary HTN PLAN OF CARE CHIDI Heparin gtt serial troponin, this am trending down, still elevated patient asymptomatic, no cardiac complaints cardio follows ASA, Plavix resumed BB statin, lipid panel OK CTA results pending ( not completed, since machine broken) dressing with mild oozing cardio aware continue heparin drip HH stable venous Duplex BLE pending supplemental O2 to keep sat above 92% Pulmonary toilet prn Fup CXR in AM ECHO with pEF 55% and RVSP of 39 c/w mild pulmonary HTn CXR wiht interstitial edema, pro BNP over 1999, consider diuresis-per cardio discretion doubt PNA, leukocytosis likely reactive BS management with SS of insulin GI prophayxlis case discussed and evaluated by supervising physician Subjective Allergies: Coded Allergies: No Known Allergies (Unverified , 10/04/13) Subjective no chest pain, no SOB, some oozing from left sided surgical site HH stable afebrile, no leukocytosis Objective Last 24 Hour Vital Signs Date Time Temp Pulse Resp B/P (MAP) Pulse Ox O2 Delivery O2 Flow Rate FiO2 01/19/17 11:22 77 01/19/17 10:52 86 164/84 01/19/17 08:00 86 01/19/17 08:00 98.0 81 18 164/84 100 Nasal Cannula 2.0 01/19/17 04:00 98.1 80 20 153/77 99 Nasal Cannula 3.0 01/19/17 04:00 75 01/19/17 00:00 98.2 76 20 159/74 100 Nasal Cannula 2.0 01/19/17 00:00 74 01/18/17 20:00 79 01/18/17 18:12 79 152/69 01/18/17 16:00 80 01/18/17 16:00 99.2 80 18 142/65 99 Nasal Cannula 3.0 01/18/17 12:30 98.1 83 20 97/47 98 Nasal Cannula 3.0 Objective General Appearance: no apparent distress, alert - awake, alert, responsive AA female in NAD , morbidly obese HEENT: normocephalic, atraumatic, anicteric, mucous membranes moist, PERRL Neck: supple, RIJ CL intact, left lateral neck with dressing oozing Respiratory/Chest: lungs clear, no respiratory distress, no accessory muscle use, left chest pacemaker Cardiovascular/Chest: normal peripheral pulses, normal rate - V pacing with underlying SR Abdomen: normal bowel sounds, non tender, soft - obese Extremities: normal range of motion, non-tender, no calf tenderness Neurologic: no motor/sensory deficits, alert, oriented x 3, responsive Musculoskeletal: normal muscle bulk Laboratory Tests 01/18/17 14:00: Activated Partial Thromboplast Time 124H 01/19/17 02:00: Activated Partial Thromboplast Time 116H 01/19/17 04:00: White Blood Count 8.9, Red Blood Count 3.38L, Hemoglobin 9.6L, Hematocrit 29.7L , Mean Corpuscular Volume 88, Mean Corpuscular Hemoglobin 28.3, Mean Corpuscular Hemoglobin Concent 32.2, Red Cell Distribution Width 13.6, Platelet Count 202, Mean Platelet Volume 6.0L, Neutrophils (%) (Auto) 56.8, Lymphocytes ( %) (Auto) 23.2, Monocytes (%) (Auto) 14.3H, Eosinophils (%) (Auto) 5.0H, Basophils (%) (Auto) 0.7, Sodium Level 143, Potassium Level 4.1, Chloride Level 105, Carbon Dioxide Level 31H, Anion Gap 7, Blood Urea Nitrogen 16, Creatinine 1.2H, Estimat Glomerular Filtration Rate , Glucose Level 174H, Calcium Level 8.8 , Troponin I 1.85*H, Pro-B-Type Natriuretic Peptide 2047H, Thyroid Stimulating Hormone (TSH) 0.489, Free Thyroxine 1.35 01/19/17 09:45: Activated Partial Thromboplast Time 45H, Prothrombin Time 11.0, Prothromb Time International Ratio 1.1 01/19/17 10:00: White Blood Count 9.7, Red Blood Count 3.41L, Hemoglobin 9.8L, Hematocrit 29.9L , Mean Corpuscular Volume 88, Mean Corpuscular Hemoglobin 28.8, Mean Corpuscular Hemoglobin Concent 32.8, Red Cell Distribution Width 13.6, Platelet Count 212, Mean Platelet Volume 5.9L, Neutrophils (%) (Auto) 70.1, Lymphocytes ( %) (Auto) 13.2L, Monocytes (%) (Auto) 11.8H, Eosinophils (%) (Auto) 4.3H, Basophils (%) (Auto) 0.6 Current Medications Medications (Trade) Dose Ordered Sig/Erin Route PRN Reason Start Time Stop Time Status Last Admin Dose Admin Acetaminophen (Tylenol) 650 mg Q4H PRN ORAL fever 01/18/17 14:00 02/16/17 13:59 Al Hydroxide/Mg Hydroxide (Mylanta II) 30 ml Q6H PRN ORAL dyspepsia 01/18/17 16:00 02/16/17 15:59 Aspirin (ASA) 81 mg DAILY ORAL 01/19/17 09:00 02/17/17 08:59 01/19/17 10:52 Atorvastatin Calcium (Lipitor) 40 mg BEDTIME ORAL 01/18/17 21:00 02/17/17 20:59 01/18/17 21:21 Carvedilol (Coreg) 25 mg BID ORAL 01/18/17 18:00 02/17/17 08:59 01/19/17 10:52 Clopidogrel Bisulfate (Plavix) 75 mg DAILY ORAL 01/19/17 09:00 02/17/17 08:59 01/19/17 10:52 Dextrose (Dextrose 50%) STAT PRN IV Hypoglycemia 01/18/17 13:00 02/16/17 12:59 Heparin Sodium/ Dextrose 500 ml @ 27.216 mls/ hr adjust per protocol IV 01/19/17 03:30 02/18/17 03:29 01/19/17 11:58 Insulin Aspart (NovoLOG) BEFORE MEALS AND HS SUBQ 01/18/17 16:30 02/17/17 06:29 01/19/17 11:57 Lorazepam (Ativan 2mg/ml 1ml) 0.5 mg Q4H PRN IV For Anxiety 01/18/17 14:00 01/24/17 13:59 Morphine Sulfate (Morphine Sulfate) 1 mg Q4H PRN IVP For Pain 01/18/17 14:00 01/24/17 13:59 Ondansetron HCl (Zofran) 4 mg Q6H PRN IVP Nausea & Vomiting 01/18/17 16:00 02/16/17 15:59 Pantoprazole (Protonix) 40 mg ACBREAKFAST ORAL 01/19/17 06:30 02/17/17 06:29 01/19/17 06:33 Polyethylene Glycol (Miralax) 17 gm HSPRN PRN ORAL Constipation 01/18/17 21:00 02/16/17 20:59 Zolpidem Tartrate (Ambien) 5 mg HSPRN PRN ORAL Insomnia 01/18/17 21:00 01/24/17 20:59 [facility]Yamileth NP Jan 19, 2017 12:38
[2017-01-19] MEDS ORDERED: DuoNeb 0.5-3(2.5)mg/3ml neb HHN PRN (13:00)
[2017-01-19] MEDS: LORazepam Inj 2mg/ml 1ml IV PRN ×3 (15:45→22:45)
[2017-01-19 16:06] LABS: ABG BASE EXCESS 0.4; ABG PCO2 136.7 mmHg (35.0-45.0)
--- NOTE | 2017-01-19 16:08 | Neurology Progress Note ---
Interim History Interim History Interim History Ms. Dejesus was sitting up in bed extremely short of breath and diaphoretic. Her left neck revealed a hematoma. She was non verbal. She however was moving all her limbs well. As per her nurse she was functioning well until she just started with a breathing treatment. Review of Systems Neuro Review of Systems Unable to obtain. Objective Physical Exam Last Vital Signs Date Time Temp Pulse Resp B/P (MAP) Pulse Ox O2 Delivery O2 Flow Rate FiO2 01/19/17 12:00 98.9 77 18 168/76 99 Nasal Cannula 2.0 Laboratory Tests Test 01/19/17 02:00 01/19/17 04:00 01/19/17 09:45 01/19/17 10:00 Activated Partial Thromboplast Time 116 SEC (23-33) H 45 SEC (23-33) H White Blood Count 8.9 K/UL (4.8-10.8) 9.7 K/UL (4.8-10.8) Red Blood Count 3.38 M/UL (4.20-5.40) L 3.41 M/UL (4.20-5.40) L Hemoglobin 9.6 G/DL (12.0-16.0) L 9.8 G/DL (12.0-16.0) L Hematocrit 29.7 % (37.0-47.0) L 29.9 % (37.0-47.0) L Mean Corpuscular Volume 88 FL (80-99) 88 FL (80-99) Mean Corpuscular Hemoglobin 28.3 PG (27.0-31.0) 28.8 PG (27.0-31.0) Mean Corpuscular Hemoglobin Concent 32.2 G/DL (32.0-36.0) 32.8 G/DL (32.0-36.0) Red Cell Distribution Width 13.6 % (11.6-14.8) 13.6 % (11.6-14.8) Platelet Count 202 K/UL (150-450) 212 K/UL (150-450) Mean Platelet Volume 6.0 FL (6.5-10.1) L 5.9 FL (6.5-10.1) L Neutrophils (%) (Auto) 56.8 % (45.0-75.0) 70.1 % (45.0-75.0) Lymphocytes (%) (Auto) 23.2 % (20.0-45.0) 13.2 % (20.0-45.0) L Monocytes (%) (Auto) 14.3 % (1.0-10.0) H 11.8 % (1.0-10.0) H Eosinophils (%) (Auto) 5.0 % (0.0-3.0) H 4.3 % (0.0-3.0) H Basophils (%) (Auto) 0.7 % (0.0-2.0) 0.6 % (0.0-2.0) Sodium Level 143 mEQ/L (135-145) Potassium Level 4.1 mEQ/L (3.4-4.9) Chloride Level 105 mEQ/L (98-107) Carbon Dioxide Level 31 mEQ/L (20-30) H Anion Gap 7 (5-15) Blood Urea Nitrogen 16 mg/dL (7-23) Creatinine 1.2 mg/dL (0.5-0.9) H Estimat Glomerular Filtration Rate mL/min (>60) Glucose Level 174 mg/dL (74-106) H Calcium Level 8.8 mg/dL (8.6-10.2) Troponin I 1.85 ng/mL (<=0.30) *H Pro-B-Type Natriuretic Peptide 2047 pg/mL (0-450) H Thyroid Stimulating Hormone (TSH) 0.489 uIU/mL (0.300-4.500) Free Thyroxine 1.35 ng/dL (0.86-1.85) Prothrombin Time 11.0 SEC (9.30-11.50) Prothromb Time International Ratio 1.1 (0.9-1.1) Neurologic Exam Objective PHYSICAL EXAMINATION: GENERAL: She is a well-developed, well-nourished, obese, black lady, sitting at the edge of her bed, in severe respiratory distress, severely diaphoretic. HEAD: Normocephalic and atraumatic. NECK: No neck rigidity was observed. She had a large left neck hematoma. NEUROLOGICAL EXAMINATION: MENTAL STATUS EXAMINATION: She was awake but poorly responsive. She was unable to communicate. SPEECH: Could not be tested. LANGUAGE: Could not be tested. CRANIAL NERVE EXAMINATION: II: The did blink to threat. III, IV & : External ocular movements were full and the pupils 3 mm in diameter, equal, round, regular, and reactive to light. V-VII: The corneal reflexes were brisk. VIII: She was able to hear well bilaterally and had no nystagmus. IX-X: Could not be tested. XI: The sternocleidomastoids and trapezii functioned. XII: The tongue was in the midline. MOTOR SYSTEM: The tone was normal in all four extremities. Examination of muscle mass revealed no focal wasting. Examination of power was impossible to perform as she was unable to cooperate but she moved all 4 extremities on deep pain. SENSORY EXAMINATION: She moved all 4 extremities on deep pain. REFLEXES: 0 at the biceps, triceps, brachioradialis, knees, and ankles. The plantar responses were flexor bilaterally. COORDINATION, STANCE & GAIT: Could not be performed. Impression/Recommendations Diagnostic Impression 1. Ms. Nadya Dejesus is a 76-year-old, right-handed, black lady, who does have a past history of hypertension, diabetes mellitus, dyslipidemia, coronary artery disease, peripheral vascular disease, and cerebrovascular disease, who had left carotid endarterectomy on 01/16/2017, and was sent home on 01/17/2017. Later that night, she became very short of breath and was brought into the [facility] Emergency Room. 2. She was well until a few minutes ago when she became severely short of breath , diaphoretic, and altered with regards to her mental state. 3. On neurological examination, at this time, she severely short of breath, diaphoretic, and severely encephalopathic. She also has a large left neck hematoma at her CEA site. 4. Laboratory data on my initial evaluation revealed a mild leukocytosis with a WBC count of 11.1 and a mild anemia with a hemoglobin of 11.3. The chemistry panel was relatively benign except for the creatinine elevated to 1.2. Her troponins were elevated and so was her proBNP. 5. The patient's history and neurological examination are most compatible with an acute pulmonary or cardiac event causing a generalized encepahlopathy. 6. She has had a recent left carotid endarterectomy recently with a large hematoma at her surgical site. Recommendations 1. Call rapid response team management STAT. 2. Further management as per STACKER ATTENDANT. 3. Await carotid Duplex. 4. Would have vascular surgeon evaluate CEA site for hematoma LOIDA. Sanchez Adhikari M.D., M.S.P.H. SANCHEZ ADHIKARI Jan 19, 2017 16:08
[2017-01-19] MEDS ORDERED: Midazolam 2mg/2ml Inj IV ONE (16:15)
[2017-01-19] MEDS ORDERED: Ipratropium 0.02% Inh Soln 2.5ml UD HHN ONE (16:15)
[2017-01-19] MEDS ORDERED: Etomidate 40mg/20ml Inj IV ONE ×2 (16:15→21:13)
[2017-01-19] MEDS ORDERED: Midazolam for drip 50 MG in NS 90 ML IV ONE (16:15)
[2017-01-19] MEDS ORDERED: Albuterol ud Inhalation HHN ONE (16:15)
--- NOTE | 2017-01-19 16:22 | Emergency Room Report ---
Physical Exam Called to intubate patient. Patient with pH -= 7.02 - resp acidosis and tachypnic with decreased responsiveness. Last 24 Hour Vital Signs Date Time Temp Pulse Resp B/P (MAP) Pulse Ox O2 Delivery O2 Flow Rate FiO2 01/19/17 12:00 98.9 77 18 168/76 99 Nasal Cannula 2.0 01/19/17 11:22 77 01/19/17 10:52 86 164/84 01/19/17 08:00 86 01/19/17 08:00 98.0 81 18 164/84 100 Nasal Cannula 2.0 01/19/17 04:00 98.1 80 20 153/77 99 Nasal Cannula 3.0 01/19/17 04:00 75 01/19/17 00:00 98.2 76 20 159/74 100 Nasal Cannula 2.0 01/19/17 00:00 74 01/18/17 20:00 79 01/18/17 18:12 79 152/69 Sp02 EP Interpretation: abnormal - low as interpreted by me General Appearance: severe distress, Stupor Head: normocephalic, atraumatic Eyes: bilateral eye Scleral Injection ENT: moist mucus membranes Neck: supple Respiratory: respiratory distress, decreased breath sounds, accessory muscle use, rales, wheezing Cardiovascular #1: tachycardia Gastrointestinal: abnormal bowel sounds - decreased, overweight Musculoskeletal: normal range of motion Neurologic: other - unresponsive to pain Psychiatric: other - stupor Skin: cyanosis, mottled Intubation Intubation : Consent: Emergent Intubation Method: orotracheal Tube Size (cm): 7.5 Medications: Etomidate - 10 Breath Sounds after Intubation: equal Intubation Complications: no complications Post Intubation Xray: Yes Attempts: One Patient Tolerated: Well Complications: None Progress ordered versed IV, versed drip, non-behavioral restraints, CXR and ABG Medical Decision Making Diagnostic Impression: Primary Impression: Respiratory failure Qualified Codes: J96.01 - Acute respiratory failure with hypoxia; J96.02 - Acute respiratory failure with hypercapnia ER Course I was called to intubate this patient. She is respiratory failure with CO2 narcosis. The patient was intubated orally. Etomidate was used. Breath sounds were equal bilaterally and had bronchospasm. There was pulmonary edema fluid in the trachea. Post intubation color change was present and also O2 saturations were 100%. Sedation was ordered as well as a blood gas and ventilator settings. Albuterol and atrovent. CXR with infiltrates and ET good placement. After 1 hour, I was called in the ED and told the patient extubated herself. She was breathing and more responsive at this time. I ordered BIPAP and a repeat ABG, also magnesium level and magnesium 1 gm. At this time, re-intubation not needed. May need reintubation if not improved. (Also told Dr. Mason of patient.) Laboratory Tests Test 01/17/17 19:51 01/18/17 05:10 01/18/17 14:00 01/19/17 02:00 White Blood Count 12.7 K/UL (4.8-10.8) H 11.1 K/UL (4.8-10.8) H Red Blood Count 3.89 M/UL (4.20-5.40) L 3.97 M/UL (4.20-5.40) L Hemoglobin 11.2 G/DL (12.0-16.0) L 11.3 G/DL (12.0-16.0) L Hematocrit 33.4 % (37.0-47.0) L 34.8 % (37.0-47.0) L Mean Corpuscular Volume 86 FL (80-99) 88 FL (80-99) Mean Corpuscular Hemoglobin 28.8 PG (27.0-31.0) 28.6 PG (27.0-31.0) Mean Corpuscular Hemoglobin Concent 33.5 G/DL (32.0-36.0) 32.5 G/DL (32.0-36.0) Red Cell Distribution Width 13.6 % (11.6-14.8) 13.9 % (11.6-14.8) Platelet Count 219 K/UL (150-450) 250 K/UL (150-450) Mean Platelet Volume 5.7 FL (6.5-10.1) L 6.4 FL (6.5-10.1) L Neutrophils (%) (Auto) 70.0 % (45.0-75.0) 69.4 % (45.0-75.0) Lymphocytes (%) (Auto) 15.0 % (20.0-45.0) L 16.1 % (20.0-45.0) L Monocytes (%) (Auto) 11.7 % (1.0-10.0) H 11.0 % (1.0-10.0) H Eosinophils (%) (Auto) 2.3 % (0.0-3.0) 2.6 % (0.0-3.0) Basophils (%) (Auto) 1.0 % (0.0-2.0) 0.9 % (0.0-2.0) Prothrombin Time 11.0 SEC (9.30-11.50) Prothrombin Time INR 1.1 (0.9-1.1) PTT 26 SEC (23-33) > 150 SEC (23-33) *H 124 SEC (23-33) H 116 SEC (23-33) H D-Dimer 2384 ng/mL (<500) H Sodium Level 143 mEQ/L (135-145) 141 mEQ/L (135-145) Potassium Level 4.6 mEQ/L (3.4-4.9) 4.2 mEQ/L (3.4-4.9) Chloride Level 105 mEQ/L (98-107) 103 mEQ/L (98-107) Carbon Dioxide Level 28 mEQ/L (20-30) 27 mEQ/L (20-30) Anion Gap 10 (5-15) 11 (5-15) Blood Urea Nitrogen 19 mg/dL (7-23) 16 mg/dL (7-23) Creatinine 1.4 mg/dL (0.5-0.9) H 1.2 mg/dL (0.5-0.9) H Estimate Glomerular Filtration Rate mL/min (>60) mL/min (>60) Glucose Level 103 mg/dL (74-106) 133 mg/dL (74-106) H Calcium Level 8.9 mg/dL (8.6-10.2) 8.8 mg/dL (8.6-10.2) Total Bilirubin 0.4 mg/dL (0.0-1.2) Aspartate Amino Transferase (AST) 28 U/L (5-40) Alanine Aminotransferase (ALT) 9 U/L (3-33) Alkaline Phosphatase 98 U/L (35-104) Total Creatine Kinase 348 U/L (26-140) H Creatine Kinase MB 16.3 ng/mL (< 3.8) H Creatine Kinase MB Relative Index 4.6 Troponin I 1.98 ng/mL (<=0.30) *H 2.83 ng/mL (<=0.30) *H Pro-B-Type Natriuretic Peptide 3531 pg/mL (0-450) H Total Protein 6.8 g/dL (6.6-8.7) Albumin 3.7 g/dL (3.5-5.2) Globulin 3.1 g/dL Albumin/Globulin Ratio 1.1 (1.0-2.7) Triglycerides Level 49 mg/dL (< 150) Cholesterol Level 142 mg/dL (< 200) LDL Cholesterol 71 mg/dL (60-99) HDL Cholesterol 61 mg/dL (> 60) H Cholesterol/HDL Ratio 2.3 (3.3-4.4) L Test 01/19/17 04:00 01/19/17 09:45 01/19/17 10:00 01/19/17 16:01 White Blood Count 8.9 K/UL (4.8-10.8) 9.7 K/UL (4.8-10.8) Red Blood Count 3.38 M/UL (4.20-5.40) L 3.41 M/UL (4.20-5.40) L Hemoglobin 9.6 G/DL (12.0-16.0) L 9.8 G/DL (12.0-16.0) L Hematocrit 29.7 % (37.0-47.0) L 29.9 % (37.0-47.0) L Mean Corpuscular Volume 88 FL (80-99) 88 FL (80-99) Mean Corpuscular Hemoglobin 28.3 PG (27.0-31.0) 28.8 PG (27.0-31.0) Mean Corpuscular Hemoglobin Concent 32.2 G/DL (32.0-36.0) 32.8 G/DL (32.0-36.0) Red Cell Distribution Width 13.6 % (11.6-14.8) 13.6 % (11.6-14.8) Platelet Count 202 K/UL (150-450) 212 K/UL (150-450) Mean Platelet Volume 6.0 FL (6.5-10.1) L 5.9 FL (6.5-10.1) L Neutrophils (%) (Auto) 56.8 % (45.0-75.0) 70.1 % (45.0-75.0) Lymphocytes (%) (Auto) 23.2 % (20.0-45.0) 13.2 % (20.0-45.0) L Monocytes (%) (Auto) 14.3 % (1.0-10.0) H 11.8 % (1.0-10.0) H Eosinophils (%) (Auto) 5.0 % (0.0-3.0) H 4.3 % (0.0-3.0) H Basophils (%) (Auto) 0.7 % (0.0-2.0) 0.6 % (0.0-2.0) Sodium Level 143 mEQ/L (135-145) Potassium Level 4.1 mEQ/L (3.4-4.9) Chloride Level 105 mEQ/L (98-107) Carbon Dioxide Level 31 mEQ/L (20-30) H Anion Gap 7 (5-15) Blood Urea Nitrogen 16 mg/dL (7-23) Creatinine 1.2 mg/dL (0.5-0.9) H Estimate Glomerular Filtration Rate mL/min (>60) Glucose Level 174 mg/dL (74-106) H Calcium Level 8.8 mg/dL (8.6-10.2) Troponin I 1.85 ng/mL (<=0.30) *H Pro-B-Type Natriuretic Peptide 2047 pg/mL (0-450) H Thyroid Stimulating Hormone (TSH) 0.489 uIU/mL (0.300-4.500) Free Thyroxine 1.35 ng/dL (0.86-1.85) Prothrombin Time 11.0 SEC (9.30-11.50) Prothrombin Time INR 1.1 (0.9-1.1) PTT 45 SEC (23-33) H Arterial Blood pH 7.020 (7.350-7.450) Arterial Blood Partial Pressure CO2 136.7 mmHg (35.0-45.0) *H Arterial Blood Partial Pressure O2 64.0 mmHg (75.0-100.0) L Arterial Blood HCO3 34.5 mmol/L (22.0-26.0) H Arterial Blood Oxygen Saturation 74.3 % (92.0-98.0) L Arterial Blood Base Excess 0.4 Danis Test N/a Rhythm Strip Diag. Results Rhythm: no PVC's, no ectopy, other - tachycardia Chest X-Ray Diagnostic Results Chest X-Ray Ordered: Yes # of Views/Limited/Complete: 1 View EP Interpretation: Yes Interpretation: no pneumothorax, other - ET OK, bilateral infiltrates Indication: Other Impression: Other Interpreting ER Provider: signed Jamil Camp MD Status: worsened Disposition: ADMITTED INPATIENT Condition: Critical Referrals: NON PHYSICIAN (PCP) Jamil Camp M.D. Jan 19, 2017 16:22
[2017-01-19 19:55] LABS: ABG ALLEN TEST POSITIVE; ABG BASE EXCESS 1.9
[2017-01-19] MEDS: Morphine Sulfate 2mg/ml Inj IVP PRN (20:25)
[2017-01-20] VITALS (17 sets, daily range): BP systolic 84–203; BP diastolic 42–89
[2017-01-20] MEDS: Morphine Sulfate 2mg/ml Inj IVP PRN ×3 (00:27→09:09)
--- NOTE | 2017-01-20 01:00 | Consultation ---
DATE OF CONSULTATION: 01/19/2017 HEMATOLOGY/ONCOLOGY CONSULTATION: CONSULTING PHYSICIAN: Oscar Joseph M.D. ADMITTING PHYSICIAN: Brice Garcia D.O. REASON FOR CONSULTATION: Bleeding. CURRENT COMPLAINT AND HISTORY OF PRESENT ILLNESS: Dear. Dr. Brice Garcia: I had an opportunity to see one of your patients, Mrs. Nadya Dejesus, who as you are well aware, 76-year-old delightful female with past medical history remarkable for hypertension, diabetes, hyperlipidemia, status post carotid endarterectomy on 01/16/2017 at [facility]. The patient ended up to have shortness of breath all day. During evaluation, it was found that the patient developed some bleeding from surgical site. The patient has a history of non-ST elevation HI x2, status post pacemaker, status post defibrillator, status post cardiac stent, history of hypertension, and diabetes mellitus. My service was called to handle the issue of IV heparin as well as the bleeding from surgical site. PAST MEDICAL HISTORY: 1. Coronary artery disease. 2. History of acute HI x2. 3. Status post pacemaker placement. 4. Defibrillator. 5. Status post PTCA and cardiac stent placement. 6. Hypertension. 7. Diabetes mellitus. 8. Hyperlipidemia. 9. Status post bilateral carotid endarterectomy on 01/16/2017 in [facility]. MEDICATIONS: 1. Ipratropium. 2. Aspirin. 3. Plavix. 4. Protonix. 5. Heparin intravenous. 6. Atorvastatin. 7. Zolpidem. 8. Insulin. 9. Zosyn. 10. Tylenol. 11. Morphine sulfate. ALLERGIES: NKDA. FAMILY HISTORY: Noncontributory. SOCIAL HISTORY: No history of smoking. No history of alcohol abuse. No history of illicit drug use. REVIEW OF SYSTEMS: General: The patient is not in any significant distress, but was chronically ill. Respiratory: Mild shortness of breath on exertion. Gastrointestinal: The patient claimed constipation. Neuromuscular: The patient claims muscle aches. PHYSICAL EXAMINATION: VITAL SIGNS: T-max 97 degrees, respiratory rate 20, heart rate 80, and blood pressure 130/80. HEENT: Head, normocephalic and atraumatic. NECK: Supple. No thyroid enlargement. No lymphadenopathy. LUNGS: Decreased breath sounds bilaterally with a few rhonchi in the bases. HEART: S1 and S2, regular. ABDOMEN: Soft and benign. No organomegaly present. Bowel sounds are present. EXTREMITIES: No cyanosis, clubbing, or edema. IMPRESSION: 1. Bleeding from surgical site. 2. Coronary artery disease. 3. Status post recent left carotid endarterectomy. 4. Anemia of chronic disease. 5. Anemia secondary to bleeding from endarterectomy site. 6. Hypertension. 7. Diabetes mellitus. 8. Dyslipidemia. 9. History of myocardial infarction x2. 10. Percutaneous coronary intervention stent placement. 11. Automatic implantable cardioverter-defibrillator (defibrillator placement). 12. Peripheral vascular disease. 13. Status post left lower extremity stent placement. 14. History of cerebrovascular accident. 15. Malnutrition. 16. Failure to thrive. 17. Encephalopathy. RECOMMENDATIONS: 1. Watch count. 2. Watch coagulopathy. 3. Packed red blood cells transfusion on an as-needed basis. 4. Continue anticoagulation with heparin intravenous. 5. Cardiology followup. 6. Pulmonary followup. 7. Neurology followup. 8. Skin care. 9. Nutrition. 10. Continue current treatment. 11. I discussed with the staff. Dear Dr. Brice Garcia, I greatly appreciate the opportunity to participate in the care of one of your patients. Oscar Joseph MD DR: JACI/lokesh JOB#: [id number] CC:
[2017-01-20] MEDS: LORazepam Inj 2mg/ml 1ml IV PRN ×3 (02:43→11:33)
[2017-01-20 05:55] LABS: BASOPHILS % (AUTO) 0.8 % (0.0-2.0); EOSINOPHILS % (AUTO) 1.3 % (0.0-3.0); LYMPHOCYTES % (AUTO) 9.2 % (20.0-45.0); MEAN CORPUSCULAR HEMOGLOBIN 27.8 PG (27.0-31.0); MEAN CORPUSCULAR HGB CONC 31.9 G/DL (32.0-36.0); MEAN CORPUSCULAR VOLUME 87 FL (80-99); MEAN PLATELET VOLUME 6.1 FL (6.5-10.1); MONOCYTES % (AUTO) 9.5 % (1.0-10.0); NEUTROPHILS % (AUTO) 79.3 % (45.0-75.0); PLATELET COUNT 266 K/UL (150-450); RED BLOOD COUNT 3.68 M/UL (4.20-5.40); RED CELL DISTRIBUTION WIDTH 13.6 % (11.6-14.8); WHITE BLOOD COUNT 17.3 K/UL (4.8-10.8)
[2017-01-20] MEDS: NovoLOG Insulin Flexpen SUBQ SCH (06:06)
[2017-01-20 06:23] LABS: ALANINE AMINOTRANSFERASE 17 U/L (3-33); ALBUMIN/GLOBULIN RATIO 0.8 (1.0-2.7); ANION GAP 10 (5-15); ASPARTATE AMINO TRANSFERASE 29 U/L (5-40); CALCIUM 9.1 mg/dL (8.6-10.2); CARBON DIOXIDE 29 mEQ/L (20-30); CHLORIDE 103 mEQ/L (98-107); CREATININE 1.1 mg/dL (0.5-0.9); HEMOLYSIS 9; POTASSIUM 4.9 mEQ/L (3.4-4.9); SODIUM 142 mEQ/L (135-145)
[2017-01-20] MEDS: Heparin 25,000u/D5W 500ml 500 ML IV SCH (06:23)
[2017-01-20 06:34] LABS: MAGNESIUM 1.9 mg/dL (1.7-2.5); PHOSPHORUS 3.4 mg/dL (2.5-4.8)
[2017-01-20 08:48] LABS: TROPONIN I 0.72 ng/mL (<=0.30)
[2017-01-20] MEDS: Carvedilol 25mg Tab ORAL SCH (09:09)
[2017-01-20] MEDS: Aspirin Baby 81mg ORAL SCH (09:09)
--- NOTE | 2017-01-20 10:06 | Diagnostic Imaging Report ---
Indication: Chest pain Technique: Continuous helical transaxial imaging of the chest was obtained from the thoracic inlet to the upper abdomen during rapid intravenous contrast administration. Arterial phase of enhancement obtained. Coronal 2-D reformats were also obtained and maximum intensity projection images in multiple planes. Study obtained in a Siemens sensation [address] Total Dose length Product (DLP): [address] Dose Index Volume (CTDIvol): 12.6, 12.6, 36.25 mGy Comparison: None Findings: There is no obvious pulmonary embolus identified. Aorta shows no dissection or aneurysm. There is some mural thrombus. Pacemaker noted. Trace pericardial effusion is present. A mild upper lobe infiltrates and basilar infiltrate versus atelectasis demonstrated. Trace pericardial fusions are present. Small hiatal hernia is present. Nonspecific low density focus seen at the periphery of the right lobe of the liver measuring 1.5 CM. Impression: No evidence of pulmonary embolus, aortic dissection or aneurysm Atherosclerotic disease Patchy bilateral infiltrates. Please correlate clinically. Hiatal hernia Nonspecific hypoattenuated focus in the liver 1.5 CM. Cystic versus solid. Further evaluation suggested Trace pericardial effusion Dr. Bucio has communicated the preliminary results to the Emergency Department. There are no significant discrepancies. The CT scanner at [facility] is accredited by the [employer] and the scans are performed using dose optimization techniques as appropriate to a performed exam including Automatic Exposure control.
[2017-01-20 10:16] LABS: ABG BASE EXCESS 4.3; ABG PCO2 48.3 mmHg (35.0-45.0)
[2017-01-20 10:17] LABS: ABG ALLEN TEST POSITIVE
--- NOTE | 2017-01-20 10:25 | Pulmonolgy Critical Care Note ---
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 - Objective Last 24 Hour Vital Signs Date Time Temp Pulse Resp B/P (MAP) Pulse Ox O2 Delivery O2 Flow Rate FiO2 01/20/17 10:00 87 25 143/51 95 Bi-pap 50 01/20/17 09:35 98.9 01/20/17 09:09 86 174/99 01/20/17 09:00 88 22 177/70 95 Bi-pap 50 01/20/17 08:44 75 23 100 Facial 50 01/20/17 08:00 98.9 85 22 153/64 95 Bi-pap 50 01/20/17 08:00 89 01/20/17 07:00 88 25 156/63 95 Bi-pap 50 01/20/17 06:50 Bi-pap 15.0 50 01/20/17 06:50 100 Bi-pap 15.0 50 01/20/17 06:50 83 27 100 Facial 50 01/20/17 06:00 87 14 169/59 95 Bi-pap 50 01/20/17 05:07 86 25 100 Facial 30 01/20/17 05:00 87 15 150/50 100 Bi-pap 50 01/20/17 04:00 88 01/20/17 04:00 98.8 84 22 164/53 100 Bi-pap 50 01/20/17 03:30 87 23 100 Facial 30 01/20/17 03:00 88 28 170/72 100 Bi-pap 50 01/20/17 02:00 94 25 159/64 100 Bi-pap 50 01/20/17 01:30 62 22 98 Facial 30 01/20/17 01:00 89 19 172/67 100 Bi-pap 50 01/20/17 00:00 98.5 84 21 203/69 91 Bi-pap 30 01/20/17 00:00 83 01/19/17 23:30 68 26 99 Facial 50 01/19/17 23:00 83 19 162/54 95 Bi-pap 30 01/19/17 22:00 66 20 145/50 92 Bi-pap 30 01/19/17 21:09 70 22 93 Facial 50 01/19/17 21:00 60 20 111/36 99 Bi-pap 50 01/19/17 20:00 98.5 84 21 171/90 90 Bi-pap 30 01/19/17 20:00 84 01/19/17 19:30 71 20 99 Facial 100 01/19/17 19:00 79 20 167/47 100 Mechanical Ventilator 100.0 01/19/17 18:00 101 178/94 01/19/17 18:00 76 20 166/47 100 Mechanical Ventilator 100.0 01/19/17 17:29 100 Non-Rebreather 15.0 100 01/19/17 17:29 Non-Rebreather 15.0 100 01/19/17 17:13 Non-Rebreather 15.0 100 01/19/17 17:06 84 18 80 01/19/17 17:00 93 18 113/42 100 Mechanical Ventilator 100.0 01/19/17 16:30 76 20 166/47 100 Mechanical Ventilator 100.0 01/19/17 16:30 100 01/19/17 16:30 80 01/19/17 16:25 90 18 80 01/19/17 12:00 98.9 77 18 168/76 99 Nasal Cannula 2.0 01/19/17 11:22 77 01/19/17 10:52 86 164/84 Status: sedated, somnolent Condition: critical, grave Neck: full ROM Lungs: clear, chest wall tender Heart: HR/BP stable, HR/BP unstable Abdomen: soft, non-tender, feeding tube Extremities: no C/C/E, edema Decubiti: location Accucheck: 231 Critical Care - Subjective ROS Limited/Unobtainable: No ICU Day: 2 Intubation Day: self extubated yesterday Condition: critical EKG Rhythm: A-Paced FI02: 50 Vent Support Breath Rate: 18 Vent Support Mode: AC Vent Tidal Volume: 650 Sputum Amount: None PEEP: 5.0 PIP: 40 Fluids: none I&O: Intake and Output 01/20/17 01/21/17 19:00 07:00 Intake Total 50 ml Output Total 0 ml Balance 50 ml Other 50 ml Output Urine Total 0 ml CXR: pulmonary edema ET-Tube: 7.5 ET Position: 23 Labs: Laboratory Tests Test 01/19/17 16:01 01/19/17 17:28 01/19/17 17:30 01/20/17 05:00 Arterial Blood pH 7.020 (7.350-7.450) 7.250 (7.350-7.450) Arterial Blood Partial Pressure CO2 136.7 mmHg (35.0-45.0) *H 71.0 mmHg (35.0-45.0) *H Arterial Blood Partial Pressure O2 64.0 mmHg (75.0-100.0) L 330.5 mmHg (75.0-100.0) H Arterial Blood HCO3 34.5 mmol/L (22.0-26.0) H 30.4 mmol/L (22.0-26.0) H Arterial Blood Oxygen Saturation 74.3 % (92.0-98.0) L 99.3 % (92.0-98.0) H Arterial Blood Base Excess 0.4 1.9 Danis Test N/a Positive Activated Partial Thromboplast Time 70 SEC (23-33) H 89 SEC (23-33) H White Blood Count 17.3 K/UL (4.8-10.8) #H Red Blood Count 3.68 M/UL (4.20-5.40) L Hemoglobin 10.3 G/DL (12.0-16.0) L Hematocrit 32.2 % (37.0-47.0) L Mean Corpuscular Volume 87 FL (80-99) Mean Corpuscular Hemoglobin 27.8 PG (27.0-31.0) Mean Corpuscular Hemoglobin Concent 31.9 G/DL (32.0-36.0) L Red Cell Distribution Width 13.6 % (11.6-14.8) Platelet Count 266 K/UL (150-450) Mean Platelet Volume 6.1 FL (6.5-10.1) L Neutrophils (%) (Auto) 79.3 % (45.0-75.0) H Lymphocytes (%) (Auto) 9.2 % (20.0-45.0) L Monocytes (%) (Auto) 9.5 % (1.0-10.0) Eosinophils (%) (Auto) 1.3 % (0.0-3.0) Basophils (%) (Auto) 0.8 % (0.0-2.0) Sodium Level 142 mEQ/L (135-145) Potassium Level 4.9 mEQ/L (3.4-4.9) Chloride Level 103 mEQ/L (98-107) Carbon Dioxide Level 29 mEQ/L (20-30) Anion Gap 10 (5-15) Blood Urea Nitrogen 13 mg/dL (7-23) Creatinine 1.1 mg/dL (0.5-0.9) H Estimat Glomerular Filtration Rate mL/min (>60) Glucose Level 226 mg/dL (74-106) H Calcium Level 9.1 mg/dL (8.6-10.2) Phosphorus Level 3.4 mg/dL (2.5-4.8) Magnesium Level 1.9 mg/dL (1.7-2.5) Total Bilirubin 0.3 mg/dL (0.0-1.2) Aspartate Amino Transf (AST/SGOT) 29 U/L (5-40) Alanine Aminotransferase (ALT/SGPT) 17 U/L (3-33) Alkaline Phosphatase 114 U/L (35-104) H Troponin I 0.72 ng/mL (<=0.30) *H Total Protein 7.0 g/dL (6.6-8.7) Albumin 3.3 g/dL (3.5-5.2) L Globulin 3.7 g/dL Albumin/Globulin Ratio 0.8 (1.0-2.7) L Test 01/20/17 10:08 Arterial Blood pH 7.406 (7.350-7.450) Arterial Blood Partial Pressure CO2 48.3 mmHg (35.0-45.0) H Arterial Blood Partial Pressure O2 162.8 mmHg (75.0-100.0) H Arterial Blood HCO3 29.7 mmol/L (22.0-26.0) H Arterial Blood Oxygen Saturation 98.9 % (92.0-98.0) H Arterial Blood Base Excess 4.3 Danis Test Positive SHRAVAN TIMMONS Jan 20, 2017 10:25
[2017-01-20] MEDS ORDERED: NovoLOG Insulin Flexpen SUBQ SCH ×2 (11:30→12:00)
--- NOTE | 2017-01-20 11:58 | Diagnostic Imaging Report ---
Indication: Intubation Comparison: 01/18/17 A single view chest radiograph was obtained. Findings: There is mild interstitial edema suspected. Endotracheal tube is in the position above the terell. Pacemaker and right jugular line again noted. Impression: Interstitial edema
--- NOTE | 2017-01-20 12:17 | Neurology Progress Note ---
Interim History Interim History Interim History Ms. Dejesus has woken up but is still lethargic. She was given Ativan and Morphine earlier. She is on a BiPAP mask. She has been moving all her limbs well. She is still encephalopathic. Review of Systems Neuro Review of Systems Unable to obtain. Objective Physical Exam Last Vital Signs Date Time Temp Pulse Resp B/P (MAP) Pulse Ox O2 Delivery O2 Flow Rate FiO2 01/20/17 11:15 72 22 100 Facial 40 01/20/17 11:00 129/48 01/20/17 09:35 98.9 01/20/17 06:50 15.0 Laboratory Tests Test 01/19/17 16:01 01/19/17 17:28 01/19/17 17:30 01/20/17 05:00 Arterial Blood pH 7.020 (7.350-7.450) 7.250 (7.350-7.450) Arterial Blood Partial Pressure CO2 136.7 mmHg (35.0-45.0) *H 71.0 mmHg (35.0-45.0) *H Arterial Blood Partial Pressure O2 64.0 mmHg (75.0-100.0) L 330.5 mmHg (75.0-100.0) H Arterial Blood HCO3 34.5 mmol/L (22.0-26.0) H 30.4 mmol/L (22.0-26.0) H Arterial Blood Oxygen Saturation 74.3 % (92.0-98.0) L 99.3 % (92.0-98.0) H Arterial Blood Base Excess 0.4 1.9 Danis Test N/a Positive Activated Partial Thromboplast Time 70 SEC (23-33) H 89 SEC (23-33) H White Blood Count 17.3 K/UL (4.8-10.8) #H Red Blood Count 3.68 M/UL (4.20-5.40) L Hemoglobin 10.3 G/DL (12.0-16.0) L Hematocrit 32.2 % (37.0-47.0) L Mean Corpuscular Volume 87 FL (80-99) Mean Corpuscular Hemoglobin 27.8 PG (27.0-31.0) Mean Corpuscular Hemoglobin Concent 31.9 G/DL (32.0-36.0) L Red Cell Distribution Width 13.6 % (11.6-14.8) Platelet Count 266 K/UL (150-450) Mean Platelet Volume 6.1 FL (6.5-10.1) L Neutrophils (%) (Auto) 79.3 % (45.0-75.0) H Lymphocytes (%) (Auto) 9.2 % (20.0-45.0) L Monocytes (%) (Auto) 9.5 % (1.0-10.0) Eosinophils (%) (Auto) 1.3 % (0.0-3.0) Basophils (%) (Auto) 0.8 % (0.0-2.0) Sodium Level 142 mEQ/L (135-145) Potassium Level 4.9 mEQ/L (3.4-4.9) Chloride Level 103 mEQ/L (98-107) Carbon Dioxide Level 29 mEQ/L (20-30) Anion Gap 10 (5-15) Blood Urea Nitrogen 13 mg/dL (7-23) Creatinine 1.1 mg/dL (0.5-0.9) H Estimat Glomerular Filtration Rate mL/min (>60) Glucose Level 226 mg/dL (74-106) H Calcium Level 9.1 mg/dL (8.6-10.2) Phosphorus Level 3.4 mg/dL (2.5-4.8) Magnesium Level 1.9 mg/dL (1.7-2.5) Total Bilirubin 0.3 mg/dL (0.0-1.2) Aspartate Amino Transf (AST/SGOT) 29 U/L (5-40) Alanine Aminotransferase (ALT/SGPT) 17 U/L (3-33) Alkaline Phosphatase 114 U/L (35-104) H Troponin I 0.72 ng/mL (<=0.30) *H Total Protein 7.0 g/dL (6.6-8.7) Albumin 3.3 g/dL (3.5-5.2) L Globulin 3.7 g/dL Albumin/Globulin Ratio 0.8 (1.0-2.7) L Test 01/20/17 10:08 Arterial Blood pH 7.406 (7.350-7.450) Arterial Blood Partial Pressure CO2 48.3 mmHg (35.0-45.0) H Arterial Blood Partial Pressure O2 162.8 mmHg (75.0-100.0) H Arterial Blood HCO3 29.7 mmol/L (22.0-26.0) H Arterial Blood Oxygen Saturation 98.9 % (92.0-98.0) H Arterial Blood Base Excess 4.3 Danis Test Positive Neurologic Exam Objective PHYSICAL EXAMINATION: GENERAL: She is a well-developed, well-nourished, obese, black lady, lying in bed with a BiPAP mask. HEAD: Normocephalic and atraumatic. NECK: No neck rigidity was observed. She had a left neck hematoma. NEUROLOGICAL EXAMINATION: MENTAL STATUS EXAMINATION: She could be aroused briefly. When aroused she was responsive and followed commands inconsistently. She was unable to cooperate for further mental status tests. SPEECH: She had a dysarthria. LANGUAGE: She was able to comprehend and express herself fairly well. CRANIAL NERVE EXAMINATION: II: The did blink to threat. III, IV & : External ocular movements were full and the pupils 3 mm in diameter, equal, round, regular, and reactive to light. V-VII: The corneal reflexes were sluggish but symmetrical. VIII: She was able to hear well bilaterally and had no nystagmus. IX-X: Could not be tested. XI: The sternocleidomastoids and trapezii functioned. XII: Could not be tested. MOTOR SYSTEM: The tone was normal in all four extremities. Examination of muscle mass revealed no focal wasting. Examination of power was impossible to perform as she was unable to cooperate but she moved all 4 extremities on deep pain. SENSORY EXAMINATION: She moved all 4 extremities on deep pain. REFLEXES: 0 at the biceps, triceps, brachioradialis, knees, and ankles. The plantar responses were flexor bilaterally. COORDINATION, STANCE & GAIT: Could not be performed. Impression/Recommendations Diagnostic Impression 1. Ms. Nadya Dejesus is a 76-year-old, right-handed, black lady, who does have a past history of hypertension, diabetes mellitus, dyslipidemia, coronary artery disease, peripheral vascular disease, and cerebrovascular disease, who had left carotid endarterectomy on 01/16/2017, and was sent home on 01/17/2017. Later that night, she became very short of breath and was brought into the [facility] Emergency Room. 2. On 01/19/2017, in the afternoon she became severely short of breath, diaphoretic, and altered with regards to her mental state. A [employer] was called and she had to be intubated and artificially ventilated. She has improved since then but is still encephalopathic. 3. On neurological examination, at this time, she still significantly encephalopathic. She however does not demonstrate any definite focal or lateralizing findings. 4. Laboratory data on my initial evaluation revealed a mild leukocytosis with a WBC count of 11.1 and a mild anemia with a hemoglobin of 11.3. The chemistry panel was relatively benign except for the creatinine elevated to 1.2. Her troponins were elevated and so was her proBNP. 5. Yesterday when she decompensated she was retaining CO2, was acidotic, and had a leukocytosis. 6. The patient's history and neurological examination are most compatible with a decline in function due to an acute pulmonary and/or cardiac event. 7. She has had a recent left carotid endarterectomy with a hematoma at her surgical site. Recommendations 1. Continue to stabilize in ICU. 2. Await carotid Duplex. 3. Would have vascular surgeon evaluate CEA site for hematoma. Sanchez Puente M.D., M.S.P.SANCHEZ LOWE Jan 20, 2017 12:17
--- NOTE | 2017-01-20 12:34 | Diagnostic Imaging Report ---
Indication: Dyspnea Comparison: 01/19/17 A single view chest radiograph was obtained. Findings: Patchy interstitial and airspace disease noted throughout the lungs bilaterally. Heart is enlarged. Findings appear worse. Patient has been extubated. Right jugular line is noted. Impression: Evidence of interstitial edema with slight a rapid worsening appearance since the last study. Post extubation.
--- NOTE | 2017-01-20 14:26 | General Progress Note ---
Assessment/Plan Problem List: (1) ACS (acute coronary syndrome) (2) Neck pain (3) Hypoxia ICD Codes: R09.02 - Hypoxemia SNOMED: 222627230, 09332298 (4) HTN (hypertension) ICD Codes: I10 - Essential (primary) hypertension SNOMED: 92080493 (5) Diabetes ICD Codes: E11.9 - Type 2 diabetes mellitus without complications SNOMED: 53219741 (6) CAD (coronary artery disease) ICD Codes: I25.10 - Atherosclerotic heart disease of enterprise coronary artery without angina pectoris SNOMED: 76565045 (7) Dyspnea ICD Codes: R06.00 - Dyspnea, unspecified SNOMED: 501675840 Status: unchanged Assessment/Plan o2 pulm tx cardio pulm f/u cbc bmp am heme eval kleynberg, sx eval prn per pulm Subjective Constitutional: Reports: weakness Allergies: Coded Allergies: No Known Allergies (Unverified , 10/04/13) All Systems: reviewed and negative except above Subjective o2 mask lethargic in icu Objective Last 24 Hour Vital Signs Date Time Temp Pulse Resp B/P (MAP) Pulse Ox O2 Delivery O2 Flow Rate FiO2 01/20/17 13:00 82 22 151/55 92 Bi-pap 60 01/20/17 12:42 72 20 88 Facial 60 01/20/17 12:00 98.7 82 28 129/89 94 Bi-pap 60 01/20/17 12:00 82 01/20/17 11:15 72 22 100 Facial 40 01/20/17 11:00 76 22 129/48 100 Bi-pap 50 01/20/17 10:00 87 25 143/51 95 Bi-pap 50 01/20/17 09:35 98.9 01/20/17 09:09 86 174/99 01/20/17 09:00 88 22 177/70 95 Bi-pap 50 01/20/17 08:44 75 23 100 Facial 50 01/20/17 08:00 98.9 85 22 153/64 95 Bi-pap 50 01/20/17 08:00 89 01/20/17 07:00 88 25 156/63 95 Bi-pap 50 01/20/17 06:50 Bi-pap 15.0 50 01/20/17 06:50 100 Bi-pap 15.0 50 01/20/17 06:50 83 27 100 Facial 50 8/28/17 06:00 87 14 169/59 95 Bi-pap 50 01/20/17 05:07 86 25 100 Facial 30 01/20/17 05:00 87 15 150/50 100 Bi-pap 50 01/20/17 04:00 88 01/20/17 04:00 98.8 84 22 164/53 100 Bi-pap 50 01/20/17 03:30 87 23 100 Facial 30 01/20/17 03:00 88 28 170/72 100 Bi-pap 50 01/20/17 02:00 94 25 159/64 100 Bi-pap 50 01/20/17 01:30 62 22 98 Facial 30 01/20/17 01:00 89 19 172/67 100 Bi-pap 50 01/20/17 00:00 98.5 84 21 203/69 91 Bi-pap 30 01/20/17 00:00 83 01/19/17 23:30 68 26 99 Facial 50 01/19/17 23:00 83 19 162/54 95 Bi-pap 30 01/19/17 22:00 66 20 145/50 92 Bi-pap 30 01/19/17 21:09 70 22 93 Facial 50 01/19/17 21:00 60 20 111/36 99 Bi-pap 50 01/19/17 20:00 98.5 84 21 171/90 90 Bi-pap 30 01/19/17 20:00 84 01/19/17 19:30 71 20 99 Facial 100 01/19/17 19:00 79 20 167/47 100 Mechanical Ventilator 100.0 01/19/17 18:00 101 178/94 01/19/17 18:00 76 20 166/47 100 Mechanical Ventilator 100.0 01/19/17 17:29 100 Non-Rebreather 15.0 100 01/19/17 17:29 Non-Rebreather 15.0 100 01/19/17 17:13 Non-Rebreather 15.0 100 01/19/17 17:06 84 18 80 01/19/17 17:00 93 18 113/42 100 Mechanical Ventilator 100.0 01/19/17 16:30 76 20 166/47 100 Mechanical Ventilator 100.0 01/19/17 16:30 100 01/19/17 16:30 80 01/19/17 16:25 90 18 80 Intake and Output 01/20/17 01/21/17 19:00 07:00 Intake Total 50 ml Output Total 1200 ml Balance -1150 ml Tube Feeding 0 ml Other 50 ml Output Urine Total 1200 ml Laboratory Tests 01/19/17 16:01: Arterial Blood pH 7.020*L, Arterial Blood Partial Pressure CO2 136.7*H, Arterial Blood Partial Pressure O2 64.0L, Arterial Blood HCO3 34.5H, Arterial Blood Oxygen Saturation 74.3L, Arterial Blood Base Excess 0.4, Danis Test N/a 01/19/17 17:28: Arterial Blood pH 7.250*L, Arterial Blood Partial Pressure CO2 71.0*H, Arterial Blood Partial Pressure O2 330.5H, Arterial Blood HCO3 30.4H, Arterial Blood Oxygen Saturation 99.3H, Arterial Blood Base Excess 1.9, Danis Test Positive 01/19/17 17:30: Activated Partial Thromboplast Time 70H 01/20/17 05:00: Activated Partial Thromboplast Time 89H, White Blood Count 17.3#H, Red Blood Count 3.68L, Hemoglobin 10.3L, Hematocrit 32.2L, Mean Corpuscular Volume 87, Mean Corpuscular Hemoglobin 27.8, Mean Corpuscular Hemoglobin Concent 31.9L, Red Cell Distribution Width 13.6, Platelet Count 266, Mean Platelet Volume 6.1L , Neutrophils (%) (Auto) 79.3H, Lymphocytes (%) (Auto) 9.2L, Monocytes (%) (Auto ) 9.5, Eosinophils (%) (Auto) 1.3, Basophils (%) (Auto) 0.8, Sodium Level 142, Potassium Level 4.9, Chloride Level 103, Carbon Dioxide Level 29, Anion Gap 10, Blood Urea Nitrogen 13, Creatinine 1.1H, Estimat Glomerular Filtration Rate , Glucose Level 226H, Calcium Level 9.1, Phosphorus Level 3.4, Magnesium Level 1.9 , Total Bilirubin 0.3, Aspartate Amino Transf (AST/SGOT) 29, Alanine Aminotransferase (ALT/SGPT) 17, Alkaline Phosphatase 114H, Troponin I 0.72*H, Total Protein 7.0, Albumin 3.3L, Globulin 3.7, Albumin/Globulin Ratio 0.8L 01/20/17 10:08: Arterial Blood pH 7.406, Arterial Blood Partial Pressure CO2 48.3H, Arterial Blood Partial Pressure O2 162.8H, Arterial Blood HCO3 29.7H, Arterial Blood Oxygen Saturation 98.9H, Arterial Blood Base Excess 4.3, Danis Test Positive Height (Feet): 5 Height (Inches): 7.00 Weight (Pounds): 253 General Appearance: confused EENT: normal ENT inspection Neck: normal alignment Cardiovascular: normal peripheral pulses, normal rate, regular rhythm Respiratory/Chest: chest wall non-tender, lungs clear, decreased breath sounds Abdomen: normal bowel sounds, non tender, soft Extremities: normal inspection Edema: no edema noted Arm (L), no edema noted Arm (R), no edema noted Leg (L), no edema noted Leg (R), no edema noted Pedal (L), no edema noted Pedal (R), no edema noted Generalized Neurologic: motor weakness Skin: normal pigmentation, warm/dry FRANTZ BURRIS Jan 20, 2017 14:26
[2017-01-20] MEDS ORDERED: NS 275ml ONE ×2 (16:03→21:11)
[2017-01-20] MEDS ORDERED: Tubing IV Secondary IV ONE (16:03)
--- NOTE | 2017-01-20 16:33 | Emergency Room Report ---
History of Present Illness General Chief Complaint: Dyspnea/Respdistress Source: Patient Present Illness Allergies: Coded Allergies: No Known Allergies (Unverified , 10/04/13) Patient History Now: No Nursing Documentation-PMH Past Medical History: No History, Except For Hx Cardiac Problems: Yes - 2 STEMI, Pacemaker, Defibilator, cardiac stents Hx Hypertension: Yes Hx Pacemaker: Yes Hx Diabetes: Yes Hx Cancer: No Hx Gastrointestinal Problems: No Hx Neurological Problems: No Physical Exam Vital Signs Date Time Temp Pulse Resp B/P (MAP) Pulse Ox O2 Delivery O2 Flow Rate FiO2 01/17/17 19:21 98.4 91 20 147/85 99 Nasal Cannula 6.0 01/19/17 16:25 80 Procedures CPR/Code Blue CPR/Code Blue Narrative Per patient's RN, desat down and lost pulse CPR in progress by time I arrived with multiple doses of epi given Code started at 1547 When I arrived, CPR was in progress O2 sat 40% Patient with no purposeful movement No palpable pulse paced rhythm on monitor No cardiac squeeze on bedside sono - standstill. no pericardial effusion Per RN, patient admitted for NSTEMI. Is on heparin gtt. Allegedly pulled out her ET tube yesterday and has been on BIPAP Total of 7 epi given with CPR Patient re-intubated Questionable ROSC at 1623 although likely minimal cardiac squeeze from epi alone Patient connected to vent Post-intubation CXR done - shows adequate placement of ET tube. Patient coded again at 435pm Bedside sono checked - no cardiac movement at all at this time 1x more epi and CPR started At 1637, patient's daughter came in to ICU, asked us to cease efforts. Dr Garcia PMD informed Intubation Intubation : Consent: Emergent Intubation Method: orotracheal Tube Size (cm): 7.5 Breath Sounds after Intubation: equal Intubation Complications: no complications Post Intubation Xray: Yes Attempts: One Patient Tolerated: Well Complications: None Progress Significant amount of blood noted in airway prior to insertion of ET tube. Blood immediately filled ET tube after insertion passed cords - blood suctioned out Medical Decision Making Diagnostic Impression: Primary Impression: Respiratory failure Last Vital Signs Date Time Temp Pulse Resp B/P (MAP) Pulse Ox O2 Delivery O2 Flow Rate FiO2 01/20/17 15:15 75 23 94 Facial 60 01/20/17 15:00 133/43 01/20/17 12:00 98.7 01/20/17 06:50 15.0 Disposition: ADMITTED INPATIENT Condition: Critical Referrals: NON PHYSICIAN (PCP) NESHA WEISS M.D. Jan 20, 2017 16:33
--- NOTE | 2017-01-20 16:51 | Diagnostic Imaging Report ---
Indication: Intubation Comparison: 01/20/17 at 07:52 A single view chest radiograph was obtained. Findings: Endotracheal tube is in good position several centimeters above the terell. Patchy airspace disease again demonstrated bilaterally. Heart is borderline enlarged. Right jugular line and nasogastric tube appear in good position. Pacemaker again noted. Impression: Endotracheal tube in the position. Patchy bilateral airspace disease with some interval improvement since earlier today
--- NOTE | 2017-01-20 19:48 | Cardiology Report ---
APPROVED REPORT EKG Measurement Heart [id number] Normal sinus rhythm Left axis deviation Premature atrial complexes with left bundle aberrancy. Possible Anterior infarct, age undetermined Abnormal ECG
--- NOTE | 2017-01-21 11:40 | Diagnostic Imaging Report ---
APPROVED REPORT CPT Code: 08116 Present Symptoms Shortness of breath BILATERAL: Imaging reveals a patent deep venous system bilaterally. There is no evidence of thrombus within the femoral, popliteal or tibial segments. The greater saphenous veins are also within normal limits. Doppler indicates normal spontaneous flow within these segments.
--- NOTE | 2017-01-21 12:28 | Cardiology Report ---
APPROVED REPORT EXAM: Two-dimensional and M-mode echocardiogram with Doppler and color Doppler. INDICATION Shortness of breath M-Mode DIMENSIONS IVSd2.5 (0.7-1.1cm)Left Atrium (MM)3.4 (1.6-4.0cm) LVDd4.0 (3.5-5.6cm)Aortic Root3.0 (2.0-3.7cm) PWd1.5 (0.7-1.1cm)Aortic Cusp Exc.2.0 (1.5-2.0cm) LVDs2.2 (2.5-4.0cm) PWs2.1 cm Technically difficult study due to patient body habitus. Normal left ventricular chamber size and systolic function.Hypokinetic posterior and proximal inferior jarvis Left ventricular ejection fraction estimated to be 55-60 %. Severe hypertrophy of the septum . Anterior Echo-free space, may be due to pericardial fat or effusion. All other cardiac chamber sizes are within normal limits. Mild focal aortic valve sclerosis with adequate cusp excursion. Mildly thickened mitral valve leaflets with normal excursion. Mild mitral annulus and aortic root calcification. Pulmonic valve not well visualized. Normal tricuspid valve structure. IVC dilated at 1.9 cm with physiologic collapse. A color flow and spectral Doppler study was performed and revealed: Trace aortic regurgitation. Trace mitral regurgitation. Mitral diastolic velocities suggest reduced left ventricular relaxation (Grade I). Mild tricuspid regurgitation. Tricuspid systolic velocities suggests peak right ventricular systolic pressure of 39 mmHg, consistent with mild pulmonary hypertension. Trace pulmonic regurgitation present.
--- NOTE | 2017-01-21 13:56 | Discharge Summary ---
Discharge Summary Hospital Course Date of Admission Jan 17, 2017 at 22:06 Date of Discharge Jan 20, 2017 at 21:12 Admitting Diagnosis sob/hypoxia HPI Nadya Dejesus is a 76 year old female who was admitted on Jan 17, 2017 at 22: 06 for Shortness Of Breath/Hypoxia Hospital Course summary #[id number] Discharge Discharge Disposition Patient Discharge Diagnoses: Les ([facility]),Yamileth DRAPER Jan 21, 2017 13:56
--- NOTE | 2017-01-21 15:40 | Cardiology Report ---
APPROVED REPORT EKG Measurement Heart [id number] Abnormal ECG v pacing atrial sensing
--- NOTE | 2017-01-21 23:58 | General Progress Note ---
Assessment/Plan Status: not improved Assessment/Plan IMPRESSION: 1. Bleeding from surgical site. 2. Coronary artery disease. 3. Status post recent left carotid endarterectomy. 4. Anemia of chronic disease. 5. Anemia secondary to bleeding from endarterectomy site. 6. Hypertension. 7. Diabetes mellitus. 8. Dyslipidemia. 9. History of myocardial infarction x2. 10. Percutaneous coronary intervention stent placement. 11. Automatic implantable cardioverter-defibrillator (defibrillator placement). 12. Peripheral vascular disease. 13. Status post left lower extremity stent placement. 14. History of cerebrovascular accident. 15. Malnutrition. 16. Failure to thrive. 17. Encephalopathy. RECOMMENDATIONS: 1. Watch count. 2. Watch coagulopathy. 3. Packed red blood cells transfusion on an as-needed basis. 4. Continue anticoagulation with heparin intravenous. 5. Cardiology followup. 6. Pulmonary followup. 7. Neurology followup. 8. Skin care. 9. Nutrition. 10. Continue current treatment. 11. I discussed with the staff. Subjective Date patient seen: Jan 20, 2017 - Late Entry. Patient was seen and examined by Dr. Mary Jo Joseph on 01/20/17 at 0600. Time patient seen: 06:00 ROS Limited/Unobtainable: Yes Constitutional: Reports: weakness Allergies: Coded Allergies: No Known Allergies (Unverified , 10/04/13) Subjective Critical Condition. Bipap mask on. Lethargic. In ICU. Encephalopathic. Objective VS - Last 72 Hours, by Label Date Time Temp Pulse Resp B/P (MAP) Pulse Ox O2 Delivery O2 Flow Rate FiO2 01/20/17 16:00 56 24 84/42 93 Bi-pap 60 01/20/17 15:15 75 23 94 Facial 60 01/20/17 15:03 81 01/20/17 15:00 87 24 133/43 93 Bi-pap 60 01/20/17 14:00 83 22 135/54 92 Bi-pap 60 01/20/17 13:00 82 22 151/55 92 Bi-pap 60 01/20/17 12:42 72 20 88 Facial 60 01/20/17 12:00 98.7 82 28 129/89 94 Bi-pap 60 01/20/17 12:00 82 01/20/17 12:00 60 01/20/17 11:15 72 22 100 Facial 40 01/20/17 11:00 76 22 129/48 100 Bi-pap 50 01/20/17 10:00 87 25 143/51 95 Bi-pap 50 01/20/17 09:35 98.9 01/20/17 09:09 86 174/99 01/20/17 09:00 88 22 177/70 95 Bi-pap 50 01/20/17 08:44 75 23 100 Facial 50 01/20/17 08:00 98.9 85 22 153/64 95 Bi-pap 50 01/20/17 08:00 89 01/20/17 08:00 50 01/20/17 07:00 88 25 156/63 95 Bi-pap 50 01/20/17 06:50 Bi-pap 15.0 50 01/20/17 06:50 100 Bi-pap 15.0 50 01/20/17 06:50 83 27 100 Facial 50 01/20/17 06:00 87 14 169/59 95 Bi-pap 50 01/20/17 05:07 86 25 100 Facial 30 01/20/17 05:00 87 15 150/50 100 Bi-pap 50 01/20/17 04:00 88 01/20/17 04:00 98.8 84 22 164/53 100 Bi-pap 50 01/20/17 03:30 87 23 100 Facial 30 01/20/17 03:00 88 28 170/72 100 Bi-pap 50 01/20/17 02:00 94 25 159/64 100 Bi-pap 50 01/20/17 01:30 62 22 98 Facial 30 01/20/17 01:00 89 19 172/67 100 Bi-pap 50 01/20/17 00:00 98.5 84 21 203/69 91 Bi-pap 30 01/20/17 00:00 83 01/19/17 23:30 68 26 99 Facial 50 01/19/17 23:00 83 19 162/54 95 Bi-pap 30 01/19/17 22:00 66 20 145/50 92 Bi-pap 30 01/19/17 21:09 70 22 93 Facial 50 01/19/17 21:00 60 20 111/36 99 Bi-pap 50 01/19/17 20:00 98.5 84 21 171/90 90 Bi-pap 30 01/19/17 20:00 84 01/19/17 19:30 71 20 99 Facial 100 01/19/17 19:00 79 20 167/47 100 Mechanical Ventilator 100.0 01/19/17 18:00 101 178/94 01/19/17 18:00 76 20 166/47 100 Mechanical Ventilator 100.0 01/19/17 17:29 100 Non-Rebreather 15.0 100 01/19/17 17:29 Non-Rebreather 15.0 100 01/19/17 17:13 Non-Rebreather 15.0 100 01/19/17 17:06 84 18 80 01/19/17 17:00 93 18 113/42 100 Mechanical Ventilator 100.0 01/19/17 16:30 76 20 166/47 100 Mechanical Ventilator 100.0 01/19/17 16:30 100 01/19/17 16:30 80 01/19/17 16:25 90 18 80 01/19/17 12:00 98.9 77 18 168/76 99 Nasal Cannula 2.0 01/19/17 11:22 77 01/19/17 10:52 86 164/84 01/19/17 08:00 86 01/19/17 08:00 98.0 81 18 164/84 100 Nasal Cannula 2.0 01/19/17 04:00 98.1 80 20 153/77 99 Nasal Cannula 3.0 01/19/17 04:00 75 01/19/17 00:00 98.2 76 20 159/74 100 Nasal Cannula 2.0 01/19/17 00:00 74 Labs Test 01/19/17 02:00 01/19/17 04:00 01/19/17 09:45 01/19/17 10:00 Activated Partial Thromboplast Time 116 SEC (23-33) 45 SEC (23-33) White Blood Count 8.9 K/UL (4.8-10.8) 9.7 K/UL (4.8-10.8) Red Blood Count 3.38 M/UL (4.20-5.40) 3.41 M/UL (4.20-5.40) Hemoglobin 9.6 G/DL (12.0-16.0) 9.8 G/DL (12.0-16.0) Hematocrit 29.7 % (37.0-47.0) 29.9 % (37.0-47.0) Mean Corpuscular Volume 88 FL (80-99) 88 FL (80-99) Mean Corpuscular Hemoglobin 28.3 PG (27.0-31.0) 28.8 PG (27.0-31.0) Mean Corpuscular Hemoglobin Concent 32.2 G/DL (32.0-36.0) 32.8 G/DL (32.0-36.0) Red Cell Distribution Width 13.6 % (11.6-14.8) 13.6 % (11.6-14.8) Platelet Count 202 K/UL (150-450) 212 K/UL (150-450) Mean Platelet Volume 6.0 FL (6.5-10.1) 5.9 FL (6.5-10.1) Neutrophils (%) (Auto) 56.8 % (45.0-75.0) 70.1 % (45.0-75.0) Lymphocytes (%) (Auto) 23.2 % (20.0-45.0) 13.2 % (20.0-45.0) Monocytes (%) (Auto) 14.3 % (1.0-10.0) 11.8 % (1.0-10.0) Eosinophils (%) (Auto) 5.0 % (0.0-3.0) 4.3 % (0.0-3.0) Basophils (%) (Auto) 0.7 % (0.0-2.0) 0.6 % (0.0-2.0) Sodium Level 143 mEQ/L (135-145) Potassium Level 4.1 mEQ/L (3.4-4.9) Chloride Level 105 mEQ/L (98-107) Carbon Dioxide Level 31 mEQ/L (20-30) Anion Gap 7 (5-15) Blood Urea Nitrogen 16 mg/dL (7-23) Creatinine 1.2 mg/dL (0.5-0.9) Estimat Glomerular Filtration Rate mL/min (>60) Glucose Level 174 mg/dL (74-106) Calcium Level 8.8 mg/dL (8.6-10.2) Troponin I 1.85 ng/mL (<=0.30) Pro-B-Type Natriuretic Peptide 2047 pg/mL (0-450) Thyroid Stimulating Hormone (TSH) 0.489 uIU/mL (0.300-4.500) Free Thyroxine 1.35 ng/dL (0.86-1.85) Prothrombin Time 11.0 SEC (9.30-11.50) Prothromb Time International Ratio 1.1 (0.9-1.1) Test 01/19/17 16:01 01/19/17 17:28 01/19/17 17:30 01/20/17 05:00 Arterial Blood pH 7.020 (7.350-7.450) 7.250 (7.350-7.450) Arterial Blood Partial Pressure CO2 136.7 mmHg (35.0-45.0) 71.0 mmHg (35.0-45.0) Arterial Blood Partial Pressure O2 64.0 mmHg (75.0-100.0) 330.5 mmHg (75.0-100.0) Arterial Blood HCO3 34.5 mmol/L (22.0-26.0) 30.4 mmol/L (22.0-26.0) Arterial Blood Oxygen Saturation 74.3 % (92.0-98.0) 99.3 % (92.0-98.0) Arterial Blood Base Excess 0.4 1.9 Danis Test N/a Positive Activated Partial Thromboplast Time 70 SEC (23-33) 89 SEC (23-33) White Blood Count 17.3 K/UL (4.8-10.8) Red Blood Count 3.68 M/UL (4.20-5.40) Hemoglobin 10.3 G/DL (12.0-16.0) Hematocrit 32.2 % (37.0-47.0) Mean Corpuscular Volume 87 FL (80-99) Mean Corpuscular Hemoglobin 27.8 PG (27.0-31.0) Mean Corpuscular Hemoglobin Concent 31.9 G/DL (32.0-36.0) Red Cell Distribution Width 13.6 % (11.6-14.8) Platelet Count 266 K/UL (150-450) Mean Platelet Volume 6.1 FL (6.5-10.1) Neutrophils (%) (Auto) 79.3 % (45.0-75.0) Lymphocytes (%) (Auto) 9.2 % (20.0-45.0) Monocytes (%) (Auto) 9.5 % (1.0-10.0) Eosinophils (%) (Auto) 1.3 % (0.0-3.0) Basophils (%) (Auto) 0.8 % (0.0-2.0) Sodium Level 142 mEQ/L (135-145) Potassium Level 4.9 mEQ/L (3.4-4.9) Chloride Level 103 mEQ/L (98-107) Carbon Dioxide Level 29 mEQ/L (20-30) Anion Gap 10 (5-15) Blood Urea Nitrogen 13 mg/dL (7-23) Creatinine 1.1 mg/dL (0.5-0.9) Estimat Glomerular Filtration Rate mL/min (>60) Glucose Level 226 mg/dL (74-106) Calcium Level 9.1 mg/dL (8.6-10.2) Phosphorus Level 3.4 mg/dL (2.5-4.8) Magnesium Level 1.9 mg/dL (1.7-2.5) Total Bilirubin 0.3 mg/dL (0.0-1.2) Aspartate Amino Transf (AST/SGOT) 29 U/L (5-40) Alanine Aminotransferase (ALT/SGPT) 17 U/L (3-33) Alkaline Phosphatase 114 U/L (35-104) Troponin I 0.72 ng/mL (<=0.30) Total Protein 7.0 g/dL (6.6-8.7) Albumin 3.3 g/dL (3.5-5.2) Globulin 3.7 g/dL Albumin/Globulin Ratio 0.8 (1.0-2.7) Test 01/20/17 10:08 Arterial Blood pH 7.406 (7.350-7.450) Arterial Blood Partial Pressure CO2 48.3 mmHg (35.0-45.0) Arterial Blood Partial Pressure O2 162.8 mmHg (75.0-100.0) Arterial Blood HCO3 29.7 mmol/L (22.0-26.0) Arterial Blood Oxygen Saturation 98.9 % (92.0-98.0) Arterial Blood Base Excess 4.3 Dnais Test Positive Height (Feet): 5 Height (Inches): 7.00 Weight (Pounds): 253 General Appearance: lethargic Respiratory/Chest: chest wall non-tender, lungs clear Abdomen: non tender, soft MARY JO JOSEPH Jan 21, 2017 23:58
--- NOTE | 2017-01-22 13:15 | Discharge Summary 2 SIG ---
DATE OF ADMISSION: 01/17/2017 DATE OF EXPIRATION: 01/20/2017 REASON FOR ADMISSION: 76-year-old female with significant cardiac medical history, including history of STEMI x2, pacemaker , AICD, cardiac stents as well as a history of diabetes, hypertension, and hyperlipidemia, undergone left carotid endarterectomy at [facility] the day prior to ED visit in [facility]. She presented with one day shortness of breath at rest and on exertion. She denied any chest pain. No fevers. No chills. No cough. No wheezing. No blackouts. No loss of consciousness. She denied any history of DVT or PE in the past. She was not on any hormone replacement therapy. No history of malignancy. Workup in the emergency room revealed elevated troponin -1.98. Elevated D-dimer- 2384. CTA was started in the ED, but unable to complete since machine broke. The patient was started on empiric heparin drip for presumed PE as well as a non-STEMI. CXR with evidence of interstitial edema. In the emergency room, BUN -19 and creatinine -1.4. The patient was anemic. Hemoglobin -11.2 and hematocrit -33.4. EKG revealed atrial pacing, T-wave inversion in leads I and aVL. Initial chest x-ray revealed mild interstitial edema. The patient was admitted for further management. ADMITTING DIAGNOSES: 1. SOB with acute hypoxemic respiratory failure. 2. Elevated troponin, 3. Possibly non-ST elevation myocardial infarction 4. Possible pulmonary embolism. 5. Status post recent left carotid endarterectomy. 6. Hypertension. 7. Coronary artery disease with cardiac stents. 8. History of ST elevation myocardial infarction x2. 9. Pacemaker. 10. Diabetes. 11. Hyperlipidemia. 12. Acute kidney injury versus chronic renal insufficiency. Hospital Stay: The patient was initially admitted on telemetry floor and started on heparin drip. Serial troponin were ordered. Cardiology consult was requested. The patient was transferred to higher level of care, i.e. direct observation unit. Foreman/Project Manager seen and evaluated the patient. Per hydrotherapist, the patient had elevated troponin. However, the patient denied any chest pain and EKG did not show any ischemic changes. Per Cardiology, elevated troponin could be secondary to pulmonary embolism as the patient's D-dimer was very high. Interrogation of defibrillator was done. Aspirin and Plavix were resumed. The patient was on beta-alma and statin. Lipid panel was within normal limits. CTA was done on 01/19/2017 and revealed no evidence of pulmonary embolism, but showed patchy bilateral infiltrate. Venous duplex of bilateral lower extremities was negative. Blood pressure was managed with current regimen and was stable. The patient undergone echocardiogram, which revealed preserved ejection fraction of 55%, left ventricular diastolic dysfunction and right ventricular systolic pressure of 39 consistent with mild pulmonary hypertension. Supplemental oxygen was provided to keep saturation above 92%. Pulmonary toilet was provided as needed. Chest x-ray revealed interstitial edema without significant change from day before. Initially doubt pneumonia. Leukocytosis was likely reactive. Chest x-ray was more consistent with interstitial congestion. GI prophylaxis was provided. Blood sugar was managed with sliding scale of insulin. The patient developed oozing from the left lateral side on the neck operative site. Pressure dressing was reinforced. Foreman/Project Manager was informed about the bleeding, however, the patient needs to continue heparin drip. After pressure dressing applied, oozing stopped. Hemoglobin and hematocrit remained at the baseline. Hematology consult was requested in regards to bleeding/oozing, who recommended to monitor counts. Monitor for coagulopathy. Transfuse as needed to keep hemoglobin above 8 as well as to continue heparin drip. No evidence of acute bleeding. Oozing controlled with pressure dressing. The patient was seen by neurologist. There was no focal neurological deficit. According to neurologist , history and neurological examination most compatible with shortness of breath, none neurological in nature. Carotid duplex was ordered, but was not done. On , while neurologist was doing rounds, found the patient was less responsive. Subsequently, ABG was done stat at 1600 hours on nonrebreathing mask and revealed severe respiratory acidosis with pH-7.02, pCO2 of 136.7. The patient required emergency oral intubation. According to the ED doctor, who intubated the patient, the patient was in acute respiratory acidosis, tachypneic and less responsive. The patient was subsequently intubated by emergency room doctor and transferred to ICU. The patient self extubated herself in one hour after she was intubated . At that time emergency room doctor evaluated the patient and ordered BIPAP, since the patient was breathing steadily and was more responsive. At that time, reintubation was not required. Repeated ABG in 1 hour actually showed significant improvement: pH up to 7.25 and pCO2 down to 71. ABG the next day showed resolved acidosis and nearly resolved hypercapnia. The pH - 7.40, pCO2 -48, and O2 saturation was 99% on BiPAP. On 01/20/2017, Mariaa Begum was called at 1548 hours since the patient was desaturated and lost pulses. O2 saturation was 40%. The patient had no purposeful movement. No palpable pulses. Had a paced rhythm on monitor. No cardiac rhythm. Bedside sonogram/standstill. No pericardial effusion. A total of 7 epinephrine were given with CPR and patient finally reintubated. The patient was connected to ventilator. Post intubation chest x-ray was done, which revealed adequate placement of ET tube. However, the patient unfortunately coded again at 16:30. Bedside ultrasound was checked, again no cardiac movement at all at that time. One more ampule of epinephrine and CPR was started. At 1637 hours, the patient's daughter came to ICU and asked to cease effort to revive her mother. Code Blue was stopped. The patient was pronounced at 1637 hours. Cause of was cardiopulmonary arrest. FINAL DIAGNOSES: 1. Acute hypoxemic hypercapnic respiratory failure, requiring intubation on 01/19/2017 2. Status post self-extubation. 3. Status post cardiopulmonary arrest x2. 4. Status post 01/20/2017 re-intubation. 5. Elevated troponin, 6 . Likely non-ST elevation myocardial infarction. 7. Status post recent left carotid endarterectomy. 8. Hypertension. 9. Coronary artery disease. 10. Pacemaker. 11. Diabetes. 12. Hyperlipidemia. 13. Acute kidney injury on chronic renal insufficiency. 14. Mild pulmonary hypertension. Brice Garcia D.O. Yamileth HarrisonFlushing Hospital Medical CenterViktoriya N.PRobert DR: DAPHNE JOB#: [id number] CC: MARLEN
== END 2017-01-20 21:12 | disposition expired ==
LOC: EDBD 19:27 → EMR 21:47 → EDBEDREQ 21:49 → 2E 22:06 → EDBEDREQ 22:09 → 2W 01-18 11:36 → ICU 01-19 16:29
PROC: 05HM33Z Insertion of Infusion Device into Right Internal Jugular Vein, Percutaneous Approach (ICD-10-PCS; principal; 2017-01-17)
PROC: 5A09357 Assistance with Respiratory Ventilation, Less than 24 Consecutive Hours, Continuous Positive Airway Pressure (ICD-10-PCS; 2017-01-19)
PROC: 0BH17EZ Insertion of Endotracheal Airway into Trachea, Via Natural or Artificial Opening (ICD-10-PCS; 2017-01-19)
PROC: 5A1935Z Respiratory Ventilation, Less than 24 Consecutive Hours (ICD-10-PCS; 2017-01-19)
PROC: 5A12012 Performance of Cardiac Output, Single, Manual (ICD-10-PCS; 2017-01-20)
DX: I21.4 Non-ST elevation (NSTEMI) myocardial infarction (principal); J96.01 Acute respiratory failure with hypoxia; N17.9 Acute kidney failure, unspecified; G93.40 Encephalopathy, unspecified; E46 Unspecified protein-calorie malnutrition; I97.618 Postprocedural hemorrhage of a circulatory system organ or structure following other circulatory system procedure; I27.2 Other secondary pulmonary hypertension; D62 Acute posthemorrhagic anemia; E11.9 Type 2 diabetes mellitus without complications; I25.10 Atherosclerotic heart disease of native coronary artery without angina pectoris; Z95.5 Presence of coronary angioplasty implant and graft; I25.2 Old myocardial infarction; E78.5 Hyperlipidemia, unspecified; I12.9 Hypertensive chronic kidney disease with stage 1 through stage 4 chronic kidney disease, or unspecified chronic kidney disease; N18.9 Chronic kidney disease, unspecified; I73.9 Peripheral vascular disease, unspecified; Z79.02 Long term (current) use of antithrombotics/antiplatelets; D64.9 Anemia, unspecified; Y83.8 Other surgical procedures as the cause of abnormal reaction of the patient, or of later complication, without mention of misadventure at the time of the procedure; Z79.4 Long term (current) use of insulin; D63.8 Anemia in other chronic diseases classified elsewhere; Z95.810 Presence of automatic (implantable) cardiac defibrillator; R62.7 Adult failure to thrive; M54.2 Cervicalgia
CPT/HCPCS: 36415; 36600; 71010; 71275; 80048; 80053; 80061; 82550; 82553; 82803; 82962; 83735; 83880; 84100; 84439; 84443; 84484; 85025; 85379; 85610; 85730; 92950; 93005; 93306; 93970; 94002; 94003; 94660; 94760; 97803; J1815; J7620